=== PATIENT | female | born 1995 | race Two or more races ===

== ENCOUNTER 2024-05-26 16:47 | Emergency (ER) | payer MEDICAID, SELFPAY ==
[2024-05-26 17:13] VITALS: BP 113/71; PULSE 97; RESP 18; TEMP 37; O2SAT 98
--- NOTE | 2024-05-26 17:16 | XR_ITS ---
Examination: Complete OB ultrasound greater than 14 weeks Date and time of exam: May 26, 2024 1855 hrs. Indications: Painful urination 2 weeks, early intrauterine by history Findings: Viable intrauterine single fetus with single amniotic sac presentation variable Cardiac motion 155 BPM Placenta fundal grade 1 Umbilical cord insertion seen Amniotic fluid index 7.7 cm Cervix 4.8 cm closed Ovaries obscured by bowel gas. Composite estimated gestational age based on BPD, head circumference, abdominal circumference, femur length is 17 weeks 6 days Estimated weight 202.5 g. Survey of intracranial anatomy, spinal anatomy, abdominal anatomy, four-chamber heart performed with no abnormalities identified. Impression: Viable intrauterine gestation variable presentation Placenta fundal no abruption.
--- NOTE | 2024-05-26 17:17 | EDNOTE_ITS ---
ED Female Urogenital RME/HPI General Chief complaint: Urogenital-Female Stated complaint: 17 weeks OB , painful urination Time Seen by Provider: 05/26/24 17:09 Arrival date/time: 05/26/24 16:47 RME / HPI RME / HPI Narrative: 28-year-old female patient 1 para 0, about 17 weeks gestation, came in for evaluation regarding dysuria. Patient been having dysuria for 1 week with frequency, and vaginal discomfort. Patient denies any vomiting denies any fever denies any vaginal bleeding denies any spotting however patient is complaining of pelvic pain, severity mild. Seen by Dr. Gaytan [facility], and was started on vaginal cream with no relief. Related Data Allergies Allergy/AdvReac Type Severity Reaction Status Date / Time No Known Allergies Allergy Verified 03/28/24 13:10 Review of Systems Review of Systems Narrative Review of Systems: Review of system reviewed and within normal limits except mentioned in HPI ED Exam Narrative Physical exam: VITAL SIGNS: Reviewed. GENERAL APPEARANCE: Alert and interactive, follows commands, no acute distress, HEAD AND FACE: Non-traumatic. ENT: PERRL, pink conjunctivitis, eyelid no trauma, Mucous membrane moist. NECK: Supple, nontender, no nuchal rigidity. CHEST: No tenderness, no crepitus, no paradoxical movement, no retractions. LUNGS: Clear, well ventilated, symmetric, no rales, no wheezing, no ronchi, no stridor, good breath sounds bilaterally. HEART: Regular rate, regular rhythm, no murmur, no gallops. ABDOMEN: Soft, positive bowel sounds, nondistended, no guarding, nontender, no rebound, no masses, RECTAL: Deferred. GENITAL: Deferred. NEUROLOGICAL: Gross motor function intact sensory function intact, Appropriate for age. MUSCULOSKELETAL: low back nontender, full range of motion. EXTREMITIES: Nontender, full range of motion. SKIN: Color pink, dry, no rash, no lacerations, no abrasions, no contusions. LYMPHATICS: Deferred. Course Quality Measures none Orders Category Date Time Status US OB >= 14 weeks Fetus Stat Exams 05/26/24 17:16 Completed Beta HCG,Quantitative Stat Lab 05/26/24 17:33 Completed CBC [CBC] Stat Lab 05/26/24 17:33 Completed CMP [Comprehensive Metabolic Panel] Stat Lab 05/26/24 17:33 Completed UA, C/S IF [Urinalysis, C/S if Indicated] Stat Lab 05/26/24 17:40 Completed Vital Signs Vital signs: Vital Signs Temperature 98.6 F 05/26/24 17:13 Pulse Rate 97 05/26/24 17:13 Respiratory Rate 18 05/26/24 17:13 Blood Pressure 113/71 05/26/24 17:13 Pulse Oximetry (%) 98 05/26/24 17:13 Oxygen Delivery Method Room Air 05/26/24 17:13 Urogenital - Female MDM Narrative MDM Narrative:: Patient's workup today all came back normal urinalysis no UTI. Ultrasound of showed single live intrauterine gestation about 17 weeks gestation, no abnormality noted. Results discussed with the family. Patient data External records reviewed:: None Clinical information provided by:: patient Social determinants that could affect healthcare access:: none Patient has the following chronic illnesses:: None How is presenting disease/condition affected by chronic disease/condition?: no chronic disease Evaluation data The following diagnostics were reviewed and interpreted by me:: lab results and radiology exam(s) Lab and/or radiology exams considered but not ordered:: None Interpretation Summary: Patient's workup today all came back normal ultrasound of showed single live intrauterine gestation about 17 weeks with no abnormality noted. Medications / Prescriptions Medications or Prescriptions considered but not ordered:: None Medication administrations:: None Consultations Consultation(s) initiated? (list below): No Diagnosis Urogenital Female Differential Diagnosis: urinary tract infection Most likely diagnosis given after review of the tests above:: Dysuria, Admission Indicated Admission indicated?: not indicated Admission Request Was there a request for admission?: No Admission Attestation Admission request attestation: None Disposition Plan Disposition Plan: Discharge Discharge Attestation Discharge Attestation: The patient and all family members were given an opportunity to ask questions and understood the discharge instructions. Discharge instructions specifically effects, indications for sooner follow up or return to the emergency department, and the expected course of current diagnosis. Patient condition: Stable Discharge Plan Plan Patient Disposition: HOME (Self Care) Disposition Comment: stable Prescriptions/Referrals Referrals: Madai Gaytan MD [Primary Care Provider] - In 1 week Problem List Clinical Impression: Dysuria, and not yet delivered in second trimester Patient/Caregiver Discharge Instructions Discharge Activity: activity as tolerated Education Materials: Dysuria Additional Instructions: Thank you for the opportunity for serving you today. You are stable for discharged . You are advised to: Follow-up with DR Gaytan in 1 to 2 days Return to ED for worsening of symptoms Increase oral fluids Print Language: Bulgarian Stand Alone Forms: Cristel Award Info., Patient Portal Info Letter PA/PRINTER FLOOR COVERING ASSISTANT Supervising Physician PA/NATALIE Supervising Physician: MD Pastora
[2024-05-26 17:56] LABS: Basophils % (Auto) 0 % (0-2.5); Eosinophils # (Auto) 0.1 Thou/mm3 (0.0-0.5); Eosinophils % (Auto) 1 % (0-10); Hemoglobin 11.4 g/dL (12.0-16.0); Immature Granulocytes % (Auto) 1 % (0-0); Immature Granulocytes Auto 0.04 Thou/mm3 (0.00-0.00); Lymphocytes # (Auto) 1.7 Thou/mm3 (1.0-4.8); Lymphocytes % (Auto) 24 % (10-50); Mean Corpuscular HGB Conc 34.5 g/dl (31.0-37.0); Mean Corpuscular Hemoglobin 30.6 pg (25.0-35.0); Mean Corpuscular Volume 89 fL (80-100); Monocytes # (Auto) 0.5 Thou/mm3 (0.0-0.8); Monocytes % (Auto) 7 % (0-12); Neutrophils # (Auto) 4.8 Thou/mm3 (1.8-7.7); Neutrophils % (Auto) 67 % (37-80); Nucleated Red Blood Cell % 0 /100 WBC (0); Platelet Count 165 Thou/mm3 (140-440); RDW Standard Deviation 42.7 fL (36.4-46.3); Red Blood Count 3.73 Miln/mm3 (4.00-5.20); White Blood Count 7.1 Thou/mm3 (3.6-11.0)
[2024-05-26 18:10] LABS: Collection Type, Urine Clean Catch
[2024-05-26 18:36] LABS: Bilirubin,Urine Negative (Negative); Blood,Urine Negative (Negative); Clarity,Urine Clear (Clear/Hazy); Color,Urine Lt-Yellow (Lt Yel-Yel); Culture Indicated,Urine Not Indicated; Glucose, Urine Negative (Negative); Ketones,Urine Negative (Negative); Leukocyte Esterase,Urine Positive (Negative); Nitrite,Urine Negative (Negative); Protein,Urine Negative (Neg - Trace); RBC,Urine 2 /hpf (0-3); Specific Gravity,Urine 1.023 (1.001-1.035); Squamous Epithelial Cell,Urine 2 /hpf (0-5); Urobilinogen,Urine Negative mg/dL (0.0-1.0); WBC,Urine 2 /hpf (0-5)
[2024-05-26 18:59] LABS: Alanine Aminotransferase 19 U/L (10-49); Albumin, Serum 3.9 gm/dL (3.5-5.0); Albumin/Globulin Ratio 1.7 (1.2-2.2); Alkaline Phosphatase 71 U/L (46-116); Anion Gap 5 (7-16); Aspartate Amino Transferase 14 U/L (0-34); BUN/Creatinine Ratio 12 Ratio (12-20); Beta HCG,Quantitative 39705 mIU/mL (<5.0); Bilirubin,Total 0.3 mg/dL (0.3-1.2); Blood Urea Nitrogen 6 mg/dL (9-23); Calcium 8.9 mg/dL (8.3-10.6); Carbon Dioxide 24.7 mMol/L (20.0-31.0); Chloride 108 mMol/L (98-107); Creatinine (Component) 0.5 mg/dL (0.6-1.3); Globulin 2.3 gm/dL (2.3-3.5); Glucose 121 mg/dL (74-106); Osmolality,Calculated 274 (275-295); Potassium 3.8 mMol/L (3.4-5.1); Sodium 138 mMol/L (136-145); Total Protein 6.2 gm/dL (5.7-8.2); eGFR > 60 See Note
[2024-05-26 20:36] VITALS: BP 120/65; PULSE 88; RESP 18; TEMP 36.6; O2SAT 99
[2024-05-26 20:52] VITALS: RESP 18
== END 2024-05-26 20:53 | disposition home or self-care (01) ==
PROVIDERS: Nurse Practitioner Family; Emergency Provider Emergency Medicine; PCP Student in an Organized Health Care Education/Training Program
DX: O26.892 Other specified pregnancy related conditions, second trimester (principal); R30.0 Dysuria; R10.2 Pelvic and perineal pain; R35.0 Frequency of micturition; Z3A.17 17 weeks gestation of pregnancy
CPT/HCPCS: 36415; 76805; 80053; 81001; 84702; 85025; 99284

== ENCOUNTER 2024-10-20 07:55 | Outpatient (RCR) | payer MEDICAID, SELFPAY ==
[2024-10-11 09:31] VITALS: BP 112/57; PULSE 90; RESP 16; TEMP 36.7
[2024-10-17 08:13] VITALS: BP 115/63; PULSE 90; RESP 16; TEMP 36.8
[2024-10-20 08:07] VITALS: BP 118/64; PULSE 93; RESP 16; TEMP 36.8
== END 2024-10-20 23:59 | disposition home or self-care (01) ==
LOC: S4S1 07:55
PROVIDERS: Referring Provider Student in an Organized Health Care Education/Training Program; Visit Provider Student in an Organized Health Care Education/Training Program
DX: Z34.03 Encounter for supervision of normal first pregnancy, third trimester (principal); Z31.83 Encounter for assisted reproductive fertility procedure cycle; Z3A.38 38 weeks gestation of pregnancy
CPT/HCPCS: 59025

== ENCOUNTER 2024-10-22 12:44 | Observation (INO) | payer MEDICAID, SELFPAY ==
[2024-10-22] VITALS (32 sets, daily range): BP systolic 113–125; BP diastolic 72–84; PULSE 80–104; RESP 18–99; TEMP 36.9; O2SAT 92–100; BMI 30.2
--- NOTE | 2024-10-22 13:54 | PD.LDTRIAGE2 ---
Documentation for date of: 10/22/24 Hx History Provider: Madai Gaytan : 1 Para: 0 Term: 0 : 0 Number of Living Children: 0 Abortions: Spontaneous & Elective: 0 # of Vaginal Deliveries:: 0 Hx Section: No Hx Vaginal Delivery Post : No Gestation Info Final ALIA: 11/07/24 Complaint Complaint Complaint: Co of pelvic pain, back pain, diarrhea and vomiting since 0700. IVF FROM [facility]. DIARRHEA WITHOUT FEVER OR COLIC. MILD NAUSEA RESOLVED. POC GLUCOSE ~ 68. EXAM: CERVIX 1 CM, ABDOMEN SOFT, NO GUARDING, NO INGUINAL ADENOPATHY. MILD TENDERNESS SACRO-ILIAC JOINT. FHR= CATEGORY ONE PATTERN. IRREGULAR CONTRACTIONS 3 TO 7 MINUTES INTERVAL. 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 Assessment Systems With in Normal Limits: Yes Contractions Evaluation Contractions Monitor Mode: External Contraction Frequency: 1.5-7 Contraction Duration: 60-90 Resting Tone Palpate: Soft Contraction Intensity: Mild Sterile Vaginal Exam Cervical Dilatation: 1 Cervical Effacement: 80 Station: -1 Heart Monitoring Heart Rate Assessment Monitor Mode: External FHR Baseline: 140 Variability: Moderate Accelerations: 15x15 FHR Pattern Category: Category l FHT Interventions: Turn to Right Side Movement Reported: Yes NST Reactive: Yes WNL for GA: Yes Amniotic Membranes Amniotic Membranes Amniotic Membrane Status: Intact Social risk screen Social Risk Screening Observed or verbalized signs of abuse or neglect: No Tool Carrier Referral: No RN Notes Notes LD Triage Comment: RECHECK CERVIX AFTER I HOUR
[2024-10-22 14:32] LABS: Collection Type, Urine Clean Catch
[2024-10-22 14:49] LABS: Bacteria,Urine 1+; Bilirubin,Urine Negative (Negative); Blood,Urine Negative (Negative); Budding Yeast,Urine Present; Clarity,Urine Turbid (Clear/Hazy); Color,Urine Yellow (Lt Yel-Yel); Glucose, Urine Negative (Negative); Ketones,Urine 2+ (Negative); Leukocyte Esterase,Urine Positive (Negative); Nitrite,Urine Negative (Negative); Protein,Urine Trace (Neg - Trace); RBC,Urine 11 /hpf (0-3); Specific Gravity,Urine 1.015 (1.001-1.035); Squamous Epithelial Cell,Urine 15 /hpf (0-5); WBC,Urine 12 /hpf (0-5)
== END 2024-10-22 16:04 | disposition home or self-care (01) ==
PROVIDERS: Admitting Provider Obstetrics & Gynecology; PCP Family Medicine; Visit Provider Obstetrics & Gynecology
DX: O99.613 Diseases of the digestive system complicating pregnancy, third trimester (principal); K52.9 Noninfective gastroenteritis and colitis, unspecified; O24.410 Gestational diabetes mellitus in pregnancy, diet controlled; Z3A.37 37 weeks gestation of pregnancy
CPT/HCPCS: 59899; 81001

== ENCOUNTER 2024-10-25 17:18 | Inpatient (IN) | payer MEDICAID, SELFPAY ==
[2024-10-25] VITALS (34 sets, daily range): BP systolic 121–136; BP diastolic 68–84; PULSE 71–117; O2SAT 92–100; BMI 29.7
--- NOTE | 2024-10-25 17:26 | XR_ITS ---
Examination: age limited TECHNIQUE: Limited transabdominal sonographic images pelvis Date and time: October 25, 2024 1740 hours INDICATIONS: Premature labor induction, unknown presentation and weight FINDINGS: Viable intrauterine gestation cephalic presentation Cardiac motion 143 bpm Estimated weight 3939 g Estimated gestational age 39 weeks 5 days IMPRESSION: Viable intrauterine gestation cephalic presentation Estimated gestational age 39 weeks 5 days Estimated weight 3939 g
[2024-10-25 18:13] LABS: Basophils % (Auto) 0 % (0-2.5); Eosinophils % (Auto) 1 % (0-10); Hematocrit 32.9 % (36.0-46.0); Hemoglobin 10.7 g/dL (12.0-16.0); Immature Granulocytes % (Auto) 1 % (0-0); Immature Granulocytes Auto 0.03 Thou/mm3 (0.00-0.00); Lymphocytes # (Auto) 1.3 Thou/mm3 (1.0-4.8); Lymphocytes % (Auto) 23 % (10-50); Mean Corpuscular HGB Conc 32.5 g/dl (31.0-37.0); Mean Corpuscular Hemoglobin 26.3 pg (25.0-35.0); Mean Corpuscular Volume 81 fL (80-100); Monocytes # (Auto) 0.5 Thou/mm3 (0.0-0.8); Monocytes % (Auto) 9 % (0-12); Neutrophils # (Auto) 3.9 Thou/mm3 (1.8-7.7); Neutrophils % (Auto) 67 % (37-80); Nucleated Red Blood Cell % 0 /100 WBC (0); Platelet Count 129 Thou/mm3 (140-440); RDW Standard Deviation 42.5 fL (36.4-46.3); Red Blood Count 4.07 Miln/mm3 (4.00-5.20); White Blood Count 5.9 Thou/mm3 (3.6-11.0)
[2024-10-25 19:14] LABS: Syphilis Nonreactive (Nonreactive)
[2024-10-25] MEDS: MISOPROSTOL 50 mCg TABLET VAGINAL (19:27)
--- NOTE | 2024-10-25 23:19 | PD.LDHP ---
Documentation for date of: 10/25/24 OB Labor/Induct. HPI History of Present Illness Chief complaint: Induction of labor for IVF and diet-controlled gestational diabetes : 1 Term pregnancies: 0 pregnancies: 0 Living children: 0 History of Abortions: Spontaneous and Elective: 0 History of sections: No History of : No Date of last menstrual period: 02/01/24 ALIA: 11/01/24 Gestational Age (weeks): 39 Gestational Age (days): 0 Gestational age based on last menstrual period: 38 Indication for induction: medical complication (IVF, lxs-mfvhqky-vsfzlnqcz gestational diabetes) History of present illness: Patient is a 29-year-old G1, P0 with an IVF . Being induced for IVF and wes-lshpezi-iqgzybuzq gestational diabetes. All care with Dr. Gaytan at [facility]. History of Present Dating criteria: LMP confirmed by 1st trimester US Adequate Care: Yes Ultrasounds: normal mid trimester US Obstetrical complications: gestational diabetes Medical complications: none Labs Labs: Positive: Rubella Titre, Negative: RPR, Hepatitis B, HIV, Chlamydia, Gonorrhea and Group Beta Strep and Unknown: Herpes Type 1, Herpes Type 2 and Covid-19 Past Medical History Surgical History SURGICAL: Negative Section Meds Home Medications and Allergies Home Medications ?Medication ?Instructions ?Recorded ?Confirmed ?Type No Known Home Medications 10/22/24 10/25/24 History Allergies Allergy/AdvReac Type Severity Reaction Status Date / Time No Known Allergies Allergy Verified 10/25/24 17:56 OB Exam Physical Exam Vital signs: Pulse BP Pulse Ox 75 121/73 99 10/25/24 21:09 10/25/24 21:09 10/25/24 20:05 Narrative: Patient is alert and oriented x 3 only speaks Lao. Her is present to translate. She declines official translating services Routine Abdominal Exam Abdominal: Present soft Comments: EFW by Hung'julio césar about 8 pounds. Detailed Labor and Delivery Exam Dilation (cm): 2 Effacement (%): 70 Cervix position: anterior station: -2 Consistency: soft Presentation: Vertex Membranes: intact monitor accelerations: 15x15 care home variability: Moderate (11-25) Contraction frequency (min): Irregular OB Results Labs 10/25/24 17:30 Labs: Short CBC 10/25/24 Range/Units 17:30 WBC 5.9 (3.6-11.0) Thou/mm3 Hgb 10.7 L (12.0-16.0) g/dL Hct 32.9 L (36.0-46.0) % Plt Count 129 L (140-440) Thou/mm3 Ultrasound reveals live IUP vertex presentation around 4000 g which is about 8 pounds 6 ounces. OB Assessment & Plan Assessment and Plan (1) Supervision of high risk in third trimester: Status: Acute (2) Conceived by in vitro fertilization: Status: Acute Assessment and plan: Induction of labor with Cytotec. 50 mcg placed vaginally. Reexamine the patient in 4 hours and proceed with oral Cytotec. (3) Gestational diabetes, diet controlled: Status: Acute Additional Plan Induction method: per misoprostol protocol Plan: induction and anticipate NVD Additional Plan Comment: Patient desires epidural. (3) Gestational diabetes, diet controlled Qualifiers: Trimester: third trimester Qualified Code(s): O24.410 - Gestational diabetes mellitus in , diet controlled
--- NOTE | 2024-10-25 23:31 | PD.LDHP ---
Documentation for date of: 10/25/24 OB Labor/Induct. HPI History of Present Illness : 1 Term pregnancies: 0 pregnancies: 0 Living children: 0 History of Abortions: Spontaneous and Elective: 0 History of sections: No History of : No Date of last menstrual period: 02/01/24 ALIA: 11/01/24 Gestational Age (weeks): 39 Gestational Age (days): 0 Gestational age based on last menstrual period: 38 History of present illness: Patient is a 29-year-old G1, P0 with an IVF . Being induced for IVF and ojs-srswanz-xkwukpdcp gestational diabetes. All care with Dr. Gaytan at [facility]. History of Present Dating criteria: LMP confirmed by 1st trimester US Adequate Care: Yes Labs Labs: Positive: Rubella Titre, Negative: RPR, Hepatitis B, HIV, Chlamydia, Gonorrhea and Group Beta Strep and Unknown: Herpes Type 1, Herpes Type 2 and Covid-19 Past Medical History Surgical History SURGICAL: Negative Section Meds Home Medications and Allergies Home Medications ?Medication ?Instructions ?Recorded ?Confirmed ?Type No Known Home Medications 10/22/24 10/25/24 History Allergies Allergy/AdvReac Type Severity Reaction Status Date / Time No Known Allergies Allergy Verified 10/25/24 17:56 OB Exam Physical Exam Vital signs: Pulse BP Pulse Ox 71 122/68 99 10/25/24 23:23 10/25/24 23:23 10/25/24 20:05 OB Results Labs 10/25/24 17:30 Labs: Short CBC 10/25/24 Range/Units 17:30 WBC 5.9 (3.6-11.0) Thou/mm3 Hgb 10.7 L (12.0-16.0) g/dL Hct 32.9 L (36.0-46.0) % Plt Count 129 L (140-440) Thou/mm3 OB Assessment & Plan Assessment and Plan (1) Supervision of high risk in third trimester: Status: Acute (2) Conceived by in vitro fertilization: Status: Acute (3) Gestational diabetes, diet controlled: Status: Acute (3) Gestational diabetes, diet controlled Qualifiers: Trimester: third trimester Qualified Code(s): O24.410 - Gestational diabetes mellitus in , diet controlled
[2024-10-26] VITALS (182 sets, daily range): BP systolic 105–125; BP diastolic 51–83; PULSE 61–115; RESP 16–18; TEMP 36.8–37.1; O2SAT 74–100
[2024-10-26] MEDS: RINGERS LACTATED 1000 ML 1,000 ML 100 ML IV ×2 (05:50→23:48)
[2024-10-26] MEDS: MISOPROSTOL 50 mCg TABLET PO ×2 (07:00→13:51)
[2024-10-26] MEDS: fentaNYL CIT INJ 50 mCg/ML AMP 2ML 100 MCG IV ×4 (08:22→23:22)
--- NOTE | 2024-10-26 17:44 | PD.LDPN ---
Documentation for date of: 10/26/24 OB Labor Progress Note Pain Control Pain control: tolerating well Comments: Not uncomfortable currently. Has used IV fentanyl x 1. Pelvic Exam Dilation (cm): 3 Effacement (%): 70 station: -2 Amniotic membrane status: Intact Comments: Examined patient at 1300. Offered to AROM. The states the patient does not want her bag broken. Patient has had a total of 2 doses of Cytotec. She got admitted around 7 PM last night. It was held overnight because apparently she was oumar too much. Patient is not making adequate cervical change. She was 2 to 3 cm when I admitted her. I have her 3 cm now. Contractions Monitor mode: External Contraction frequency: 4 Contraction intensity: Mild Status status: Category l Assessment and Plan Assessment: induction ongoing Plan OB labor note: continuous present management Comments: Patient declining AROM and IUPC. Having small contractions. Has only had 2 doses of Cytotec.
[2024-10-26] MEDS: OXYTOCIN in NS 30 units 30 UNIT/500 ML BAG IV (18:13)
--- NOTE | 2024-10-26 20:04 | PD.LDPN ---
Documentation for date of: 10/26/24 OB Labor Progress Note Pain Control Pain control: tolerating well Comments: The patient was last rounded on around lunchtime. She was still 3 cm. They reexamined her after her third dose of Cytotec and she still 3 cm. Pitocin augmentation was ordered. Pelvic Exam Dilation (cm): 3 Effacement (%): 60 station: -3 Amniotic membrane status: Intact Contractions Monitor mode: External Contraction frequency: 1-3 Contraction intensity: Mild Status status: Category l Assessment and Plan Assessment: induction ongoing Plan OB labor note: begin Pitocin augmentation
[2024-10-26] MEDS: RINGERS LACTATED 500 ML 500 ML 999 ML IV (23:49)
[2024-10-27] VITALS (225 sets, daily range): BP systolic 98–136; BP diastolic 53–82; PULSE 49–138; RESP 15–21; TEMP 36.9–37.5; O2SAT 89–100
[2024-10-27] MEDS: FAMOTIDINE INJ 10 MG/ML VIAL 2 ML 20 MG IVP (03:29)
--- NOTE | 2024-10-27 06:36 | PD.LDPN ---
Documentation for date of: 10/27/24 OB Labor Progress Note Pain Control Pain control: tolerating well and epidural Comments: Patient had requested epidural overnight before I broke her bag. She is asleep resting comfortably Pelvic Exam Dilation (cm): 3.5 Effacement (%): 80 station: -2 Amniotic membrane status: Ruptured Comments: AROMed and copious clear amniotic fluid. IUPC placed at 6:20 AM Contractions Monitor mode: Internal Contraction frequency: 3-6 Contraction pattern: Coupling Contraction intensity: Mild Status status: Category l Assessment and Plan Plan OB labor note: continuous present management Comments: Continue Pitocin augmentation. If patient is in adequate labor and does not make change for 4 to 5 hours consider section.
[2024-10-27] MEDS: RINGERS LACTATED 1000 ML 1,000 ML 100 ML IV (12:51)
[2024-10-27] MEDS: ceFAZolin/D5W 2 GM IV 2 GM/100 ML BAG IV (13:06)
[2024-10-27] MEDS: CITRIC ACID/SODIUM CITR 15 ML UDC (BICITRA) 30 ML PO (13:06)
[2024-10-27] MEDS: FAMOTIDINE INJ 10 MG/ML VIAL 2 ML 20 MG IV (13:07)
[2024-10-27] MEDS: KETOROLAC INJ 30 MG/ML VIAL IVP (17:23)
[2024-10-27] MEDS: IBUPROFEN TAB 400 MG TABLET 800 MG PO (19:48)
[2024-10-27] MEDS: OXYTOCIN in NS 20 units 20 UNIT/1,000 ML BAG 125 UNIT IV (19:49)
[2024-10-28] VITALS: BP 118/72; PULSE 52; RESP 18; TEMP 36.9; O2SAT 99
[2024-10-28] MEDS: KETOROLAC INJ 30 MG/ML VIAL IVP (00:33)
[2024-10-28] MEDS: ACETAMINOPHEN 325 MG TABLET 650 MG PO (01:31)
[2024-10-28] MEDS: HYDROcodone/APAP 5/325 TABLET 2 TAB PO ×3 (02:28→16:38)
[2024-10-28 05:12] LABS: Basophils % (Auto) 0 % (0-2.5); Eosinophils % (Auto) 0 % (0-10); Hematocrit 29.7 % (36.0-46.0); Hemoglobin 9.9 g/dL (12.0-16.0); Immature Granulocytes % (Auto) 1 % (0-0); Immature Granulocytes Auto 0.07 Thou/mm3 (0.00-0.00); Lymphocytes # (Auto) 1.2 Thou/mm3 (1.0-4.8); Lymphocytes % (Auto) 9 % (10-50); Mean Corpuscular HGB Conc 33.3 g/dl (31.0-37.0); Mean Corpuscular Hemoglobin 26.8 pg (25.0-35.0); Mean Corpuscular Volume 81 fL (80-100); Monocytes # (Auto) 0.9 Thou/mm3 (0.0-0.8); Monocytes % (Auto) 7 % (0-12); Neutrophils # (Auto) 11.1 Thou/mm3 (1.8-7.7); Neutrophils % (Auto) 83 % (37-80); Nucleated Red Blood Cell % 0 /100 WBC (0); Platelet Count 113 Thou/mm3 (140-440); RDW Standard Deviation 42.5 fL (36.4-46.3); Red Blood Count 3.69 Miln/mm3 (4.00-5.20); White Blood Count 13.4 Thou/mm3 (3.6-11.0)
[2024-10-28 05:15] VITALS: BP 104/68; PULSE 60; RESP 18; TEMP 36.5
[2024-10-28] MEDS: IBUPROFEN TAB 400 MG TABLET 800 MG PO ×3 (05:55→23:32)
--- NOTE | 2024-10-28 07:59 | ESPR_ITS ---
Subjective Subjective Interval history: POD # 1. Pt denies any problem or complaints. Exam Vital Signs Temp Pulse Resp BP Pulse Ox O2 Del Method 97.7 F 60 18 104/68 99 Room Air 10/28/24 05:15 10/28/24 05:15 10/28/24 05:15 10/28/24 05:15 10/28/24 00:00 10/28/24 05:15 Routine Respiratory Exam Comments: CTA B/L Routine Cardiovascular Exam Comments: RRR Routine Abdominal Exam Comments: Dressing dry and intact. Non distended. Fundus firm. Routine Extremities Exam Comments: Nontender Objective Labs 10/28/24 04:36 Labs: Laboratory Results - last 24 hr 10/28/24 04:36 WBC 13.4 H D RBC 3.69 L Hgb 9.9 L Hct 29.7 L MCV 81 MCH 26.8 MCHC 33.3 RDW Std Deviation 42.5 Plt Count 113 L Neut % (Auto) 83 H Lymph % (Auto) 9 L [place] % (Auto) 7 Eos % (Auto) 0 Baso % (Auto) 0 Neut # (Auto) 11.1 H Lymph # (Auto) 1.2 [place] # (Auto) 0.9 H Eos # (Auto) 0.0 Baso # (Auto) 0.0 Immature Gran # (Auto) 0.07 H Absolute Nucleated RBC 0.00 Immature Gran % 1 H Nucleated RBC % 0 Assessment & Plan Problem List (1) Supervision of high risk in third trimester: Status: Acute (2) Conceived by in vitro fertilization: Status: Acute (3) Gestational diabetes, diet controlled: Status: Acute Assessment Comment Assessment comment: POD #1 S/P C/S Regular diet. Remove Dressing. D/C IV. Support. Encourage Amubulation. Discharge home tomorrow. Time Spent With Patient Time: Total time spent is greater than 50% in coordination of care (as documented) at patient's floor/unit and/or counseling patient:
--- NOTE | 2024-10-28 08:24 | PC.NURSE ---
0800 District Scout Executive Monisha , not in room at the time of vitals. Used crop or grain farmer to ask patient if it was ok to check vitals and fundal massage. Patient declined and stated she just wants to sleep. 15 Patients in room, educated him on the importance of vitals and checking fundals, if at any time bleeding increases to call for assistance. Also educated him on the importance of ambulating post op to prevent ileus, blood clots and pnemonia, to also have pt up to the restroom frequently. verbalized understanding
[2024-10-28] MEDS: SIMETHICONE 80 MG CHEW PO ×2 (08:39→23:32)
[2024-10-28] MEDS: DOCUSATE SOD 100 MG CAPSULE PO (08:39)
[2024-10-28 11:34] VITALS: BP 102/64; PULSE 72; RESP 16; TEMP 36.4; O2SAT 97
[2024-10-28 16:05] VITALS: BP 115/74; PULSE 64; RESP 16; TEMP 36.7; O2SAT 98
[2024-10-28 21:00] VITALS: BP 111/74; PULSE 77; RESP 18; TEMP 36.4; O2SAT 99
[2024-10-28] MEDS: HYDROcodone/APAP 5/325 TABLET 1 TAB PO (21:24)
[2024-10-29] VITALS: BP 110/70; PULSE 76; RESP 18; TEMP 36; O2SAT 98
[2024-10-29 04:31] VITALS: BP 102/66; PULSE 63; RESP 18; TEMP 37.1; O2SAT 97
[2024-10-29] MEDS: HYDROcodone/APAP 5/325 TABLET 1 TAB PO ×2 (04:31→14:53)
[2024-10-29 08:00] VITALS: BP 99/61; PULSE 77; RESP 15; TEMP 36.6; O2SAT 96
--- NOTE | 2024-10-29 08:55 | PD.LDPPPRG ---
Subjective Subjective Interval history: Delivery type: Patient doing well this morning. No acute complaints. Ambulating, tolerating p.o. and voiding without difficulty. HTN/Pre-Eclampsia screen: No chest pain, shortness of breath, headache, visual changes, epigastric or right upper quadrant pain. Breast-feeding, lochia diminishing. Bowel: Flatus+/ BM+ Exam Vital Signs Temp Pulse Resp BP Pulse Ox O2 Del Method 98.7 F 63 18 102/66 97 Room Air 10/29/24 04:10/29/24 04:10/29/24 04:10/29/24 04:10/29/24 04:10/29/24 04:31 Constitutional Constitutional: no acute distress Routine HEENT Exam Head: Present normocephalic and atraumatic Eye: Present EOMI and PERRL ENT: Present mucous membranes moist Routine Neck Exam Neck: Present supple and trachea midline Routine Respiratory Exam Respiratory: Present chest non-tender, lungs clear, normal breath sounds and no resp distress Routine Cardiovascular Exam Cardiovascular: Present RRR Routine Abdominal Exam Abdominal: Present soft and normoactive bowel sounds Routine Extremities Exam Extremities: Present full ROM Routine Skin Exam Skin: Present intact, dry and warm Routine Neurological Exam Neurological: Present alert, oriented X3 and CN II-XII intact Routine Psychiatric Exam Psychiatric: Present normal affect and normal thought process Objective Labs 10/28/24 04:36 Assessment & Plan Problem List (1) Supervision of high risk in third trimester: Status: Acute Assessment and plan: PPD/POD#2 1. Continue routine care 2. Transition to PO meds. 3. Encourage to ambulate/ breast-feed 4. Anticipate discharge home today. (2) Conceived by in vitro fertilization: Status: Acute (3) Gestational diabetes, diet controlled: Status: Acute Time Spent With Patient Time: Total time spent is greater than 50% in coordination of care (as documented) at patient's floor/unit and/or counseling patient:
--- NOTE | 2024-10-29 08:57 | ESDS_ITS ---
DS: Providers Provider Date of admission: 10/25/24 17:18 Primary care physician: Physician No Primary/Family Admitting Provider: Dorothy Najera MD ([facility]) Attending Provider on Admission: Juaquin Brito MD Consults: 10/27/24 15:42 Referral Routine Comment: Attending Provider on DC: Pratik Stahl MD Discharging Provider: Pratik Stahl MD DS: Diagnosis Discharge Diagnosis (1) Gestational diabetes, diet controlled: Status: Acute (2) Conceived by in vitro fertilization: Status: Acute (3) Supervision of high risk in third trimester: Status: Acute Problem List Completed Was Problem List Reviewed/Reconciled?: Yes Summary/Hosp Course Brief History: Patient is a 29-year-old G1, P0 with an IVF . Being induced for IVF and zro-cqbhugv-pzcwnfhtz gestational diabetes. All care with Dr. Gaytan at [facility]. Peripartum Data Delivery Method: Low Transverse Episiotomy Description: None Procedures: Procedures Operation Date: 10/27/24 13:17 Actual Procedure Side Surgeon p in OR Pratik Stahl MD Time Spent with Patient Time attestation: Total time spent providing and/or coordinating discharge services: Exam Vital Signs Temp Pulse Resp BP Pulse Ox O2 Del Method 98.7 F 63 18 102/66 97 Room Air 10/29/24 04:31 10/29/24 04:31 10/29/24 04:31 10/29/24 04:31 10/29/24 04:31 10/29/24 04:31 Discharge Plan Plan Patient Disposition: HOME (Self Care) Patient condition on transfer: Stable Prescriptions/Referrals Prescriptions/Med Rec: New docusate sodium 100 mg Capsule 100 mg PO QDAY 30 Days Qty: 30 0RF hydrocodone-acetaminophen 5-325 mg tablet 1 tab PO Q6H MDD 4 PRN (Reason: pain) 7 Days Qty: 28 0RF ibuprofen 600 mg tablet 600 mg PO Q6H MDD 4 PRN (Reason: fever or pain) 10 Days Qty: 40 0RF Continued No Known Home Medications Referrals: Pratik Stahl MD [Physician] - No Primary/Family,Physician [Primary Care Provider] - Patient/Caregiver Discharge Instructions Discharge Activity: activity as tolerated Other Discharge Activity Instructions:: Follow up in office in 1 week. Education Materials: What Is Gestational Diabetes?, Anemia During , C Section Dc Print Language: Divehi Stand Alone Forms: Cristel Award Info., Patient Portal Info Letter Planned Discharge Date 10/29/24 (1) Gestational diabetes, diet controlled Qualifiers: Trimester: third trimester Qualified Code(s): O24.410 - Gestational diabetes mellitus in , diet controlled
[2024-10-29] MEDS: DOCUSATE SOD 100 MG CAPSULE PO (09:11)
[2024-10-29] MEDS: IBUPROFEN TAB 400 MG TABLET 800 MG PO (09:11)
--- NOTE | 2024-11-04 04:17 | ESOP_ITS ---
Operative Note - [facility] Procedure Date of procedure: 11/25/24 Procedure Performed: Primary low-transverse section Indication: 29-year-old G1, P0 who is now status post 3 days of induction of labor for IVF Failed induction of labor Possible chorioamnionitis Maternal exhaustion and request Anesthesia type: Spinal Procedure description: Informed consent was obtained and the patient was taken to the operating room. Identity was confirmed by double identifiers and she was placed on the operating table. Spinal anesthesia was administered and she was positioned in the supine position. The abdomen and perineum were prepped in the usual sterile fashion and a Francisco catheter was placed to continuous drainage. Sterile drapes were applied. The incision site was tested for adequacy of anesthesia. A Pfannenstiel skin incision was made with a scalpel and carried to the subcutaneous fat up to the rectus fascia. The rectus fascia was incised on eit her side of the midline and the incisions were extended bilaterally. The fascia was gently dissected off the ventral surface of the rectus muscle both superiorly and inferiorly. The rectus bellies were gently in the midline and the peritoneum was identified and entered bluntly using the surgeon's finger. The peritoneal opening was now stretched to create an adequate opening for access to the uterus. Samy O-ring retractor was placed for adequate visualization. The anterior surface of the uterus was palpated. The bladder reflection was identified and a Marcie Grissom low transverse uterine incision was made in the lower uterine segment taking care to avoid the bladder. Uterine entry was accomplished bluntly and the opening was stretched to create adequate room. The amniotic membranes were now ruptured and clear amniotic fluid was released. The fetus was noted to be in the vertex position. The head was gently elevated out of the maternal pelvis and single loop of n uchal cord was found around the neck. The cord was released and the rest of the shoulders and body were delivered by gentle fundal pressure. Umbilical cord was doubly clamped, divided and the was handed over to the waiting team. Cord gas samples were obtained. The placenta was delivered by gentle traction on the umbilical cord. The interior of the uterus was now thoroughly cleaned of all blood and debris and membranes. The hysterotomy angles were grasped by a pair of Allis clamps and the hysterotomy was closed using 1 Monocryl suture in 2 layers. The first layer was used to approximate the muscle in a running locked fashion, the second layer was used to approximate the thickness of the myometrium and uterine serosa in an imbricated manner. Once the repair was completed the hysterotomy was inspected and noted to be adequately hemostatic. The hysterotomy was once again inspected and hemostasis was noted to be satisfactory. The Samy retractor was now removed. The peritoneal edges were re approximated. The rectus muscles were re approximated. The rectus fascia was now repaired using 0 Vicryl suture in a running fashion. The subcutaneous layer was now copiously irrigated using warm normal saline. All bleeding points were cauterized using the Bovie. The subcutaneous fat was closed using 3-0 Vicryl. The skin was closed using 4-0 Monocryl in a subcuticular fashion. The skin was cleaned and a sterile dressing was applied. The patient was now undraped, the abdomen and back were thoroughly cleaned and she was transferred to the recovery room in a stable and awake condition. The patient tolerated the entire procedure well. No complications were encountered. All instrument, sponge and lap counts were correct x2. Estimated blood loss (ml): 600 Complications: none Diagnosis Discharge Diagnosis (1) Supervision of high risk in third trimester: Status: Acute (2) Conceived by in vitro fertilization: Status: Acute (3) Gestational diabetes, diet controlled: Status: Acute (4) delivery delivered: Status: Acute Problem List Completed Was Problem List Reviewed/Reconciled?: Yes (3) Gestational diabetes, diet controlled Qualifiers: Trimester: third trimester Qualified Code(s): O24.410 - Gestational diabetes mellitus in , diet controlled
== END 2024-10-29 15:10 | disposition home or self-care (01) | DRG 540 ==
LOC: S4SX 10-27 12:37 → S4NX 10-28 06:54
PROVIDERS: Obstetrics & Gynecology; Admitting Provider Obstetrics & Gynecology; Visit Provider Specialist
PROC: (CPT 59514; principal; 2024-10-27 13:00)
DX: O24.420 Gestational diabetes mellitus in childbirth, diet controlled (principal); Z3A.39 39 weeks gestation of pregnancy; Z37.0 Single live birth; O69.81X0 Labor and delivery complicated by cord around neck, without compression, not applicable or unspecified; O75.81 Maternal exhaustion complicating labor and delivery
CPT/HCPCS: 36415; 76815; 85025; 86780; 86850; 86900; 86901; A4649; J0689; J1100; J1885; J2210; J2371; J2405; J2590; J2795; J3010; J3490; J7120; A9270

== ENCOUNTER 2024-11-03 08:37 | Inpatient (IN) | payer MEDICAID, SELFPAY ==
[2024-11-03] VITALS (7 sets, daily range): BP systolic 117–159; BP diastolic 51–93; PULSE 52–75; RESP 16–22; TEMP 36.8–37.2; O2SAT 94–99; BMI 29.7
--- NOTE | 2024-11-03 08:57 | XR_ITS ---
Examination: CTA chest with intravenous contrast 2-D reconstructions 3-D reconstructions, vascular Date and time of exam: November 03, 2024 1404 hours INDICATIONS: Status post 1 week ago, coughing up blood. Shortness of breath today CTDI: vol (mGy) 7.65 DLP: (mGycm) 240 Technique: Multiple axial sections of the thorax have been obtained. 3 mm slice thickness, from below the hemidiaphragms to above the apices of the lungs. Mediastinal and lung density settings have been obtained. 2-D sagittal and coronal reconstructions. 3-D angiographic renderings, 3-D volume renderings, 3D post processing, vascular maximum intensity projections obtained. Contrast administered is 75 cc Isovue-370. Low dose protocols were performed. One or more of the following dose reduction techniques were used; automated exposure control, adjustment of the mA and/or KV according to patient size, use of iterative reconstruction technique. Findings: No thoracic aortic aneurysmal dilatation No pulmonary artery filling defects Mild enlargement cardiac contour with mild edema at the lung bases and small pleural effusions No visualized liver or splenic lesion No pancreatic mass IMPRESSION: Negative for pulmonary artery emboli Suspicious for mild heart failure
--- NOTE | 2024-11-03 08:57 | XR_ITS ---
Examination: Venous duplex lower extremity sonogram, bilateral. Date and time of exam: November 03, 2024 1005 hours INDICATIONS: Bilateral leg swelling beginning one week ago, October 27, 2024 Technique: Multiple sonographic images of the deep venous system have been obtained. B-mode/2-D grayscale imaging of vascular structures and Doppler spectral analysis (waveforms) and color performed Both legs are examined. Findings: Deep venous systems do not demonstrate abnormal echogenicity. All visualized deep veins exhibit compressibility. All visualized deep veins exhibit augmentation. Impression: Negative for deep vein thrombosis
--- NOTE | 2024-11-03 08:57 | EKG_ITS ---
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
--- NOTE | 2024-11-03 08:58 | PD.EDRME ---
Rapid Medical Screening Exam RME Arrival date/time: 11/03/24 08:37 29-year-old female with no known medical history presents to the emergency room with a chief complaint of bilateral lower extremity swelling, shortness of breath with and without exertion, coughing up blood, vaginal discharge x 4 days. Patient had a on 10/27/2024. Your symptoms have progressively gotten worse since then. I have greeted and performed a focused initial assessment of this patient. A comprehensive ED assessment and evaluation of the patient, analysis of all test results, and completion of the medical decision making process will be conducted by additional ED providers. Chief Complaint: General Adult/Misc Complain Time Seen by Provider: 11/03/24 08:51 Vital signs reviewed by provider: Yes
[2024-11-03 09:15] LABS: Collection Type, Urine Clean Catch
[2024-11-03 10:02] LABS: Basophils % (Auto) 0 % (0-2.5); Eosinophils # (Auto) 0.1 Thou/mm3 (0.0-0.5); Eosinophils % (Auto) 2 % (0-10); Hematocrit 25.2 % (36.0-46.0); Immature Granulocytes % (Auto) 1 % (0-0); Immature Granulocytes Auto 0.05 Thou/mm3 (0.00-0.00); Lymphocytes # (Auto) 1.4 Thou/mm3 (1.0-4.8); Lymphocytes % (Auto) 21 % (10-50); Mean Corpuscular HGB Conc 32.9 g/dl (31.0-37.0); Mean Corpuscular Hemoglobin 26.5 pg (25.0-35.0); Mean Corpuscular Volume 81 fL (80-100); Monocytes # (Auto) 0.5 Thou/mm3 (0.0-0.8); Monocytes % (Auto) 8 % (0-12); Neutrophils # (Auto) 4.5 Thou/mm3 (1.8-7.7); Neutrophils % (Auto) 69 % (37-80); Nucleated Red Blood Cell % 0 /100 WBC (0); Platelet Count 209 Thou/mm3 (140-440); RDW Standard Deviation 43.8 fL (36.4-46.3); Red Blood Count 3.13 Miln/mm3 (4.00-5.20); White Blood Count 6.5 Thou/mm3 (3.6-11.0)
[2024-11-03 10:05] LABS: Hemoglobin 8.3 g/dL (12.0-16.0)
[2024-11-03 10:09] LABS: Bacteria,Urine Rare; Bilirubin,Urine Negative (Negative); Blood,Urine 2+ (Negative); Clarity,Urine Clear (Clear/Hazy); Color,Urine Colorless (Lt Yel-Yel); Glucose, Urine Negative (Negative); Ketones,Urine Negative (Negative); Leukocyte Esterase,Urine Positive (Negative); Nitrite,Urine Negative (Negative); PH,Urine 7.5 (5.0-7.0); Protein,Urine Negative (Neg - Trace); RBC,Urine 6 /hpf (0-3); Specific Gravity,Urine 1.008 (1.001-1.035); Squamous Epithelial Cell,Urine 1 /hpf (0-5); Urobilinogen,Urine Negative mg/dL (0.0-1.0); WBC,Urine 6 /hpf (0-5)
[2024-11-03 10:13] LABS: INR 0.9 (0.9-1.3); Partial Thromboplastin Time 30.9 Seconds (22.0-36.0); Prothrombin Time 10.3 Seconds (9.0-12.2)
[2024-11-03 10:17] LABS: Alanine Aminotransferase 11 U/L (10-49); Albumin, Serum 3.4 gm/dL (3.5-5.0); Albumin/Globulin Ratio 1.6 (1.2-2.2); Alkaline Phosphatase 138 U/L (46-116); Anion Gap 10 (7-16); Aspartate Amino Transferase 10 U/L (0-34); B-Type Natriuretic Peptide 566 pg/mL (0-100); BUN/Creatinine Ratio 17 Ratio (12-20); Bilirubin,Total 0.2 mg/dL (0.3-1.2); Blood Urea Nitrogen 10 mg/dL (9-23); Calcium 8.1 mg/dL (8.3-10.6); Calcium (Corrected) 8.6 mg/dL (8.5-10.1); Carbon Dioxide 26.2 mMol/L (20.0-31.0); Chloride 109 mMol/L (98-107); Creatinine (Component) 0.6 mg/dL (0.6-1.3); Globulin 2.1 gm/dL (2.3-3.5); Glucose 81 mg/dL (74-106); Magnesium 1.9 mg/dL (1.6-2.6); Osmolality,Calculated 286 (275-295); Potassium 4.7 mMol/L (3.4-5.1); Sodium 145 mMol/L (136-145); Total Protein 5.5 gm/dL (5.7-8.2); Troponin I < 0.020 ng/mL (0.0-0.045); eGFR > 60 See Note
--- NOTE | 2024-11-03 12:16 | PD.EDSOB ---
ED SOB =RME/HPI General Chief Complaint: General Adult/Misc Complain Stated Complaint: LUL LEG SWELLING COUGHING UP BLOOD Time Seen by Provider: 11/03/24 08:51 Arrival date/time: 11/03/24 08:37 29-year-old female with no known past medical history presents to the ED with a complaint of shortness of breath, orthopnea, dyspnea on exertion, hemoptysis, and bilateral lower extremity edema that began after she underwent a 1 week ago. Spouse indicates she had some lower extremity edema but no shortness of breath prior to delivery. RME / HPI RME / HPI Narrative: 11/03/24 08:37 29-year-old female with no known medical history presents to the emergency room with a chief complaint of bilateral lower extremity swelling, shortness of breath with and without exertion, coughing up blood, vaginal discharge x 4 days. Patient had a on 10/27/2024. Your symptoms have progressively gotten worse since then. I have greeted and performed a focused initial assessment of this patient. A comprehensive ED assessment and evaluation of the patient, analysis of all test results, and completion of the medical decision making process will be conducted by additional ED providers. Related Data Home Medications ?Medication ?Instructions ?Recorded ?Confirmed No Known Home Medications 10/22/24 10/25/24 Previous Rx's ?Medication ?Instructions ?Recorded docusate sodium 100 mg capsule 100 mg PO QDAY 30 days #30 caps 10/28/24 hydrocodone 5 mg-acetaminophen 325 1 tab PO Q6H PRN pain 7 days #28 10/28/24 mg tablet tabs ibuprofen 600 mg tablet 600 mg PO Q6H PRN fever or pain 10 10/28/24 days #40 tabs Allergies Allergy/AdvReac Type Severity Reaction Status Date / Time No Known Allergies Allergy Verified 11/03/24 08:40 Review of Systems Review of Systems Systems Reviewed: All systems reviewed, normal except as documented Past Medical History Past Medical History NEUROLOGIC: Negative Neurological Disorders or Seizures CARDIAC: Negative Cardiac Disorders or Congestive Heart Failure RESPIRATORY: Negative Chronic Obstructive Pulmonary Disease (COPD) or Asthma GASTROINTESTINAL: Negative Gastrointestinal Disorders or Hepatitis GENITOURINARY: Negative Genitourinary Disorders or Renal Disease REPRODUCTIVE: Negative Endometriosis, Genital Herpes, Gonorrhea, Pelvic Inflammatory Disease, Previous Pregnancies, Syphilis or Uterine Prolapse MUSCULOSKELETAL: Negative Musculoskeletal Disorders ENDOCRINE: Positive Diabetes Mellitus Type 2 ([employer] DIABETES); Negative Endocrine Disorders or Diabetes Mellitus Type 1 HEMATOLOGIC: Negative Blood Disorders or Sickle Cell Disease OTHER HISTORY: Negative Hospitalization, Autoimmune Disease, Down Syndrome, Developmental Delay, Shingles, Falls, Blood Transfusions, Blood Transfusion Reaction, Anesthesia Reactions, Organ Transplant, Chemotherapy, Radiation Therapy, Hyperbaric Therapy, MRSA, VRSA, Vancomycin-Resistant Enterococci, Human Immunodeficiency Virus (HIV), Chicken Pox, Measles, Mumps, Rubella (J[place]ican Measles), Pertussis, Clostridium Difficile or Cancer Family History FAMILY HISTORY: Negative Family Psychiatric Problems, Family Respiratory Disorders, Family Cardiac Disorders, Family Gastrointestinal Problems, Family Cancer, Family Surgery or Family Anesthesia Reaction Surgical History SURGICAL: Positive Section; Negative Organ Transplant Social History SMOKING STATUS: Never smoker SECOND HAND EXPOSURE: No ED Exam Narrative Physical exam: Alert and oriented 29-year-old female, no acute respiratory distress, resting on gurney comfortably. Blood pressure 134/84, pulse 75, respirations 17 nonlabored, temperature 99.0, O2 sat 96% on room air. Regular rate and rhythm noted. Lungs are diminished at the bases with crackles noted Abdomen is mildly distended (status post ), soft with moderate left lower quadrant and right lower quadrant tenderness with guarding. Extremities reveal 3+ pitting edema bilaterally. Course Course Course Narrative: 29-year-old female with no known past medical history presents to the ED with a complaint of shortness of breath, orthopnea, dyspnea on exertion, hemoptysis, and bilateral lower extremity edema that began after she underwent a 1 week ago. Spouse indicates she had some lower extremity edema but no shortness of breath prior to delivery. Alert and oriented 29-year-old female, no acute respiratory distress, resting on gurney comfortably. Blood pressure 134/84, pulse 75, respirations 17 nonlabored, temperature 99.0, O2 sat 96% on room air. Regular rate and rhythm noted. Lungs are diminished at the bases with crackles noted Abdomen is mildly distended (status post ), soft with moderate left lower quadrant and right lower quadrant tenderness with guarding. Extremities reveal 3+ pitting edema. Labs reveal a normal white count of 6.5, low H&H of 8.3/25.2, normal platelets. Chemistry panel reveals a minimally elevated chloride of 109. Coags are normal. Troponin is normal at less than 0.020 and BNP is elevated at 566. Urinalysis reveals clear colorless urine with a specific gravity of 1.008 with 2+ blood, negative nitrites, positive leukocyte esterase, 6 RBCs, 6 WBCs and rare bacteria. EKG reveals a sinus rhythm at a rate of 64 with no T wave or ST changes. Initially spouse indicates they wanted to leave. Risks of leaving discussed with spouse, who relates information to patient. Risks include worsening condition, shortness of breath, permanent disability, and . After risks explained, patient and spouse are willing to stay for admission. Dr. Rubin, Resident contacted for admission, who agrees to accept patient for admission. Quality Measures none Orders Category Date Time Status CT Screening NOW Care 11/03/24 08:58 Active EKG (ED ONLY) *Do not use* NOW Care 11/03/24 08:57 Completed Insert IV NOW Care 11/03/24 12:[address] angio chest Stat Exams 11/03/24 08:57 Completed EKG (ED Only) Stat Exams 11/03/24 08:57 Draft US venous doppler LE BI Stat Exams 11/03/24 08:57 Completed B-Type Natriuretic Peptide Stat Lab 11/03/24 09:48 Completed CBC Stat Lab 11/03/24 09:48 Completed Comprehensive Metabolic Panel Stat Lab 11/03/24 09:48 Completed Magnesium Stat Lab 11/03/24 09:48 Completed Partial Thromboplastin Time Stat Lab 11/03/24 09:48 Completed Prothrombin Time with INR Stat Lab 11/03/24 09:48 Completed Troponin I Stat Lab 11/03/24 09:48 Completed Urinalysis Stat Lab 11/03/24 09:11 Completed Vital Signs Vital signs: Vital Signs Temperature 99.0 F 11/03/24 08:57 Pulse Rate 75 11/03/24 08:57 Respiratory Rate 17 11/03/24 08:57 Blood Pressure 134/84 H 11/03/24 08:57 Pulse Oximetry (%) 96 11/03/24 08:57 Oxygen Delivery Method Room Air 11/03/24 08:57 Shortness of Breath / Dyspnea MDM Narrative MDM Narrative:: 29-year-old female with no known past medical history presents to the ED with a complaint of shortness of breath, orthopnea, dyspnea on exertion, hemoptysis, and bilateral lower extremity edema that began after she underwent a 1 week ago. Spouse indicates she had some lower extremity edema but no shortness of breath prior to delivery. Alert and oriented 29-year-old female, no acute respiratory distress, resting on gurney comfortably. Blood pressure 134/84, pulse 75, respirations 17 nonlabored, temperature 99.0, O2 sat 96% on room air. Regular rate and rhythm noted. Lungs are diminished at the bases with crackles noted Abdomen is mildly distended (status post ), soft with moderate left lower quadrant and right lower quadrant tenderness with guarding. Extremities reveal 3+ pitting edema. Labs reveal a normal white count of 6.5, low H&H of 8.3/25.2, normal platelets. Chemistry panel reveals a minimally elevated chloride of 109. Coags are normal. Troponin is normal at less than 0.020 and BNP is elevated at 566. Urinalysis reveals clear colorless urine with a specific gravity of 1.008 with 2+ blood, negative nitrites, positive leukocyte esterase, 6 RBCs, 6 WBCs and rare bacteria. EKG reveals a sinus rhythm at a rate of 64 with no T wave or ST changes. Venous duplex findings: Deep venous systems do not demonstrate abnormal echogenicity. All visualized deep veins exhibit compressibility. All visualized deep veins exhibit augmentation. Impression: Negative for deep vein thrombosis CTA Chest: Findings: No thoracic aortic aneurysmal dilatation No pulmonary artery filling defects Mild enlargement cardiac contour with mild edema at the lung bases and small pleural effusions No visualized liver or splenic lesion No pancreatic mass IMPRESSION: Negative for pulmonary artery emboli Suspicious for mild heart failure Patient data External records reviewed:: [facility] previous records Clinical information provided by:: patient and spouse Social determinants that could affect healthcare access:: none Patient has the following chronic illnesses:: N/A How is presenting disease/condition affected by chronic disease/condition?: no chronic disease Evaluation data The following diagnostics were reviewed and interpreted by me:: lab results and radiology exam(s) Lab and/or radiology exams considered but not ordered:: Echocardiogram Interpretation Summary: Labs reveal a normal white count of 6.5, low H&H of 8.3/25.2, normal platelets. Chemistry panel reveals a minimally elevated chloride of 109. Coags are normal. Troponin is normal at less than 0.020 and BNP is elevated at 566. Urinalysis reveals clear colorless urine with a specific gravity of 1.008 with 2+ blood, negative nitrites, positive leukocyte esterase, 6 RBCs, 6 WBCs and rare bacteria. EKG reveals a sinus rhythm at a rate of 64 with no T wave or ST changes. Venous Duplex Findings: Deep venous systems do not demonstrate abnormal echogenicity. All visualized deep veins exhibit compressibility. All visualized deep veins exhibit augmentation. Impression: Negative for deep vein thrombosis CTA Chest: IMPRESSION: Negative for pulmonary artery emboli . Suspicious for mild heart failure Medications / Prescriptions Medications or Prescriptions considered but not ordered:: N/A Medication administrations:: Lasix 40mg IV. Consultations Consultation(s) initiated? (list below): Yes Consultation #1 (Physician, Specialty, Details): Dr. Rubin, Resident for admission. Time: 16:00 Diagnosis Shortness of Breath Differential Diagnosis: acute exacerbation of chronic obstructive airways disease, congestive heart failure, community acquired pneumonia, asthma with exacerbation and pulmonary embolism Most likely diagnosis given after review of the tests above:: Heart Failure, Post-. Admission Indicated Admission indicated?: indicated Explain why admission is indicated or not indicated:: Patient will need IV Diuresis and Echocardiogram for evaluation of heart failure. Admission Request Was there a request for admission?: Yes Admission Attestation Admission request attestation: Discussed case with [] from Hospitalist service regarding admission. Discussed patients ED course, exam findings, labs, and radiology results. The Hospitalist [agrees,declines] to accept the patient for admission. Disposition Plan Disposition Plan: Admit Discharge Plan Plan Patient Disposition: Admit Acute Care w/in Hospital Prescriptions/Referrals Prescriptions/Med Rec: No Action docusate sodium 100 mg Capsule 100 mg PO QDAY 30 Days Qty: 30 0RF hydrocodone-acetaminophen 5-325 mg tablet 1 tab PO Q6H MDD 4 PRN (Reason: pain) 7 Days Qty: 28 0RF ibuprofen 600 mg tablet 600 mg PO Q6H MDD 4 PRN (Reason: fever or pain) 10 Days Qty: 40 0RF No Known Home Medications Referrals: Madai Gaytan MD [Primary Care Provider] - In 1 week Problem List Clinical Impression: Heart failure Patient/Caregiver Discharge Instructions Print Language: Croatian Stand Alone Forms: [employer] Award Info., Patient Portal Info Letter PA/SPIRAL BINDER Supervising Physician PA/SPIRAL BINDER Supervising Physician: Dr. Templeton
--- NOTE | 2024-11-03 15:25 | PC.NURSE ---
PT REMOVED IV. RN ASSESSED THE SITE. NO REDNESS OR SWELLING ON SITE. PT STATES THAT THEY THREW AWAY IV CATH
--- NOTE | 2024-11-03 15:39 | PC.NURSE ---
PT STATES THEY WOULD LIKE TO LEAVE. PROVIDER WAS NOTIFIED ABOUT PTS REQUEST TO LEAVE. PROVIDER EDUCATED PT ABOUT CHF AND THE RISKS ASSOCIATED. PT STILL REQUEST TO LEAVE. RN EDUCATED PT ABOUT THE RISKS OF CHF AND THE SERVERITY OF THE CONDITION. RN ADVICED PT TO STAY TO GET CARE AND HOW THEY WILL GET A ROOM UPSTAIRS. PT AND AGREED TO STAY AND GET CARE
--- NOTE | 2024-11-03 16:46 | ECHO_ITS ---
Transthoracic Echo Report Ht (in): 63 Wt (lb): 168 Exam Location: Echo Lab Status: Emergency Search Optimization Analyst: Missy Burgos Indications: Procedure Performed: BP: 159 / 87 HR: 61 Technical Quality: Technically difficult study MEASUREMENTS (Male / Female) Normal Values 2D ECHO LV Diastolic Diameter PLAX 4.6 cm 4.2 - 5.9 / 3.9 - 5.3 cm LV Systolic Diameter PLAX 3.0 cm IVS Diastolic Thickness 0.4 cm 0.6 - 1.0 / 0.6 - 0.9 cm LVPW Diastolic Thickness 0.9 cm 0.6 - 1.0 / 0.6 - 0.9 cm LV Relative Wall Thickness 0.3 LVOT Diameter 1.5 cm LA Systolic Diameter LX 2.8 cm 3.0 - 4.0 / 2.7 - 3.8 cm LA Volume Index 23.7 cm?/m? 16 - 28 cm?/m? M-MODE Aortic Root Diameter MM 1.6 cm LA Systolic Diameter MM 3.3 cm LA Ao Ratio MM 2.1 AV Cusp Separation MM 1.6 cm DOPPLER AV Peak Velocity 168.0 cm/s AV Peak Gradient 11.3 mmHg AV Mean Gradient 6.0 mmHg AV Velocity Time Integral 38.9 cm LVOT Peak Velocity 75.4 cm/s LVOT Peak Gradient 2.3 mmHg LVOT Velocity Time Integral 18.1 cm LVOT Cardiac Index 1045.8 cm?/min?m? AV Area Cont Eq vti 0.8 cm? AV Area Cont Eq pk 0.8 cm? MV Area PHT 3.9 cm? MR Peak Velocity 304.0 cm/s MR Peak Gradient 37.0 mmHg Mitral E Point Velocity 129.0 cm/s Mitral A Point Velocity 26.7 cm/s Mitral E to A Ratio 4.8 LV E' Lateral Velocity 12.8 cm/s Mitral E to LV E' Lateral Ratio 10.1 LV E' Septal Velocity 10.0 cm/s Mitral E to LV E' Septal Ratio 12.9 TR Peak Velocity 285.5 cm/s TR Peak Gradient 32.6 mmHg PV Peak Velocity 121.0 cm/s PV Peak Gradient 5.9 mmHg FINDINGS Left Ventricle Normal left ventricular size, wall thickness, systolic function with no obvious regional wall motion abnormalities. Normal left ventricular diastolic filling pattern for age. The ejection fraction is visually estimated at 55-60%. Right Ventricle The right ventricle is normal in size and systolic function. The estimated right ventricular systolic pressure, 51 mmHg. RAP 5. Left Atrium The left atrium is normal by two-dimensional, color flow and Doppler imaging with no structural abnormalities, no thrombus formation present. Right Atrium The right atrium is normal by two-dimensional imaging, color flow and Doppler imaging with no structural abnormalities, no thrombus formation present. Atrial Septum The interatrial septum appears normal with no evidence of a shunt. Aorta The aorta is normal by two-dimensional, color flow and Doppler interrogation. Mitral Valve The mitral valve is normal by two-dimensional, color flow and Doppler interrogation. Trace mitral regurgitation. Aortic Valve The aortic valve is trileaflet and normal by two-dimensional, color flow and Doppler interrogation. There is no significant aortic valve regurgitation. Tricuspid Valve There is mild tricuspid valve regurgitation. Pulmonic Valve Trivial pulmonic valve regurgitation. Vessels The pulmonary artery appears normal. The inferior vena cava pulmonary and hepatic veins appear normal. Pericardium The pericardium is normal by two-dimensional imaging. There is no significant pericardial effusion. 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 Normal left ventricular diastolic function. Estimated EF 55-60%. Normal RV size and function. Estimated RVSP is 35-40 mm hg. Trace MR. Mild TR. Trivial PI. IVC normal size and no pericardial effusion. Benedict Oneil (Electronically Signed) Final Date: 03 November 2024 22:33
[2024-11-03] MEDS: FUROSEMIDE INJ 10 MG/ML 4ML VIAL 40 MG IVP (16:55)
--- NOTE | 2024-11-03 16:57 | PD.RESHP ---
Documentation for date of: 11/03/24 [facility] History of Present Illness History of present illness: 29 yo female G1,P1, with PMH of gestational diabetes, who had a delivery on 10/27 presented to [facility] on 11/03 due to dyspnea and lower extremity edema. Patient states she had bilateral leg sweling for one month prior to delivery that progressively worsened after delivery. . For the past few days however, patient started experiencing progressively worsening shortness of breath, that is worsened by laying flat (patient is unable to lay flat), she denies cough, hemoptysis or chest pain. Patient also denies vaginal bleeding. ER course: On arrival patient's vitals within normal limits, saturating adequately on room air, pertinent labs hemoglobin 8.3, chloride 109, BNP 566, albumin 3.4, total protein 5.5. Urine protein negative. Chest CT shows some vascular congestion, no PE, bilateral lower extremity Doppler no DVT. Patient was given Lasix 40 x 1 while in the ED. 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 Echo ordered PMH: Gestational diabetes Family: None Surgical: Appendectomy, Social: No drugs alcohol or smoking. Review of Systems Review of Systems Systems Reviewed: All systems reviewed, normal except as documented Exam Vital Signs Temp Pulse Resp BP Pulse Ox O2 Del Method 98.5 F 61 16 159/87 H 94 L Room Air 11/03/24 13:32 11/03/24 16:55 11/03/24 13:32 11/03/24 16:55 11/03/24 13:32 11/03/24 13:32 Narrative Exam GENERAL: Awake, alert and oriented. No acute distress. HEENT: Normocephalic, atraumatic and nontender.? Pupils are equal and reactive to light and accommodation.? Oral mucosa moist. NECK: Supple without adenopathy. Trachea midline. Nontender, carotid pulse 2+ bilaterally without bruits, no JVD.? CHEST: Heart rate and rythm normal, no murmurs, gallops auscultated. S1 & 2 normal insensity. Nontender on palpation, no deformity and no crepitus. LUNGS: Lung sounds are clear.? No wheezing, rales or ronchi.? No intercostal subcostal retraction. Room air ABDOMEN: Soft,symmetric , nontender, no guarding or rebound tenderness. No abnormal masses palpated.? Bowel sounds are normoactive in all 4 quadrants. EXTREMITIES: Nontender.? 3+ pitting edema extending to mid sotelo. SKIN: No rashes noted. NEURO:? Cranial nerves intact.? There is no focalization.? GCS is 15. Results: Labs 11/04/24 05:18 11/04/24 05:18 Labs: Short CBC 11/03/24 Range/Units 09:48 WBC 6.5 D (3.6-11.0) Thou/mm3 Hgb 8.3 L (12.0-16.0) g/dL Hct 25.2 L (36.0-46.0) % Plt Count 209 D (140-440) Thou/mm3 BMP 11/03/24 09:48 Sodium 145 Potassium 4.7 Chloride 109 H Carbon Dioxide 26.2 BUN 10 Creatinine 0.6 Glucose 81 Calcium 8.1 L Cardiac Enzymes 11/03/24 Range/Units 09:48 Troponin I < 0.020 (0.0-0.045) ng/mL Liver Function 11/03/24 Range/Units 09:48 Total Bilirubin 0.2 L (0.3-1.2) mg/dL AST 10 (0-34) U/L ALT 11 (10-49) U/L Alkaline Phosphatase 138 H (46-116) U/L Albumin 3.4 L (3.5-5.0) gm/dL Urine 11/03/24 Range/Units 09:11 Urine Color Colorless A (Lt Yel-Yel) Urine Clarity Clear (Clear/Hazy) Urine pH 7.5 H (5.0-7.0) Ur Specific Lat[place] 1.008 (1.001-1.035) Urine Protein Negative (Neg - Trace) Urine Glucose (UA) Negative (Negative) Quality Measures Quality Measures none Medications Home Medications and Allergies Allergies Allergy/AdvReac Type Severity Reaction Status Date / Time No Known Allergies Allergy Verified 11/03/24 08:40 Visit Medications Acetaminophen (Acetaminophen 325 Mg Tablet) 650 mg PO Q6H PRN PRN Reason: Fever >100.4 Stop: 12/03/24 16:45 Acetaminophen (Acetaminophen 325 Mg Tablet) 650 mg PO Q6H PRN PRN Reason: PAIN SCALE 1-3 (mild Stop: 12/03/24 16:45 Furosemide (Furosemide Inj 10 Mg/Ml 4ml Vial) 40 mg IVP QDAY LIBORIO Stop: 12/04/24 08:59 Heparin Sodium (Porcine) (Heparin Sod Inj 5000 Unit/Ml Vial) 5,000 unit SC Q8HR LIBORIO Stop: 11/17/24 21:59 Ondansetron HCl (Ondansetron Inj 2 Mg/Ml Inj 2 Ml) 4 mg IVP Q6H PRN; Protocol PRN Reason: NAUSEA OR VOMITING Stop: 12/03/24 16:45 Sennosides (Senna Tablet) 2 tab PO BID PRN; Protocol PRN Reason: CONSTIPATION Stop: 12/03/24 16:45 Discontinued Medications Furosemide (Furosemide Inj 10 Mg/Ml 4ml Vial) 40 mg IVP X1 ONE Stop: 11/03/24 15:56 Last Admin: 11/03/24 16:55 Dose: 40 mg Assessment & Plan Plan 29 yo female G1,P1, with PMH of gestational diabetes, who had a delivery on 10/27 presented to [facility] on 11/03 due to dyspnea and lower extremity edema. Patient states she had bilateral leg sweling for one month prior to delivery that progressively worsened after delivery. 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 Echo ordered #Dyspnea & Orthopnea #Lower extremity edema #Possible CHF -DDx: Suspected peripartum cardiomyopathy - Patient had a delivery in October 27, afterwards patient developed progressively worsening dyspnea, orthopnea and bilateral lower extremity edema - Chest CT ruled out PE, however revealed pulmonary vascular congestion. 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 I discussed the case with the residents and agree with the findings and plans of care as documented above. Patient is a 29 years old female, G1, P1 with past medical history of gestational diabetes presented to the ED with complaint of dyspnea and lower extremity edema. Patient recently had a on 10/27. She had bilateral leg swelling 1 month prior to delivery but has been having progressively worsening swelling following the delivery. Patient is also having orthopnea and PND along with exertional dyspnea. Denies any fever, chest pain, palpitation or cough. In the ED, vitals were within normal limits. Saturating well on room air. Lab results show hemoglobin of 8.3, BNP 566. Bilateral lower extremity Doppler was obtained which were negative for DVT. Chest CT showed some vascular congestion. After examination of the patient and review of the clinical data I feel that this patient needs admission to the hospital for further treatment/evaluation of volume overload and possibility of CHF. Will start her on Lasix 40 mg IV daily, we will obtain strict I's and O's. Will obtain cardiology and OB consult. Echocardiography ordered. Patient also has anemia, possibly from delivery. Delroy Cole MD
--- NOTE | 2024-11-03 18:07 | PD.RESCONSUL ---
HPI Data of Consult Requesting Physician: Delroy Cole MD Admitting Provider: Delroy Cole MD Attending Provider: Delroy Cole MD Primary Care Provider: Madai Gaytan MD Consult Narrative History of present illness: CC: Shortness of Breath and leg swelling. Patient is a 29-year-old female with unremarkable past medical history. Recent admission to [facility] on October 25, 2024 for labor and delivery, 1, required as patient had limited cervical dilation. During diagnosed with gestational diabetes, patient unable to recall glucose levels or A1c, stated controlled by diet and did not require insulin use. During some lower extremity edema noted but worsened shortly after delivery, noted to be bilateral mid thigh level, since then improved. Patient stated increased work of breathing and dyspnea. Dyspnea when laying flat, paroxysmal nocturnal dyspnea. Denied use of pillows to sleep at night. Denied palpitations or chest pain. Denied cardiac history. Denied family cardiac history. Denied previous history of shortness of breath. Denied any recent sick contacts. Denied COVID or influenza. Afebrile. Denied autoimmune disorders. ER Course: Vitals: BP 134/84, HR 75, RR 17, temperature 99, SpO2 96% RA Weight: 76.04 CMP: Sodium 145, potassium 4.7, chloride 109, bicarb 26.2, BUN 10, creatinine 0.6, GFR greater than 60, AST 10, ALT 11 CBC: Hemoglobin 8.3, hematocrit 25.2, MCV 81, platelets 209 11/03/2024: Venous Doppler negative CTA chest (11/03/2024): Mild enlargement of cardiac contour with mild edema at the left lung bases and small left pleural effusion. PE negative BMP: 566 EKG: Regular sinus, HR 60, QT 401 Medication: Lasix 40 mg IV X 1 Cardiology Consulted: New onset of CHF. PMH: None Past Surgical History: Appendectomy Past Family History: Father-Diabetes Mellitus Mother-none denied family history of cardiac disease Home Medication: None Social History: No Alcohol Use Never Smoker No illicit drug use Allergies: None Code Status: Full Code cc:: cc: Delroy Cole MD Review of Systems Review of Systems Narrative Review of Systems: General appearance: NO weight change, NO fatigue, NO weakness, NO fever, NO chills, NO night sweats, No cough Skin: NO rash, NO itching, NO sores, NO moles HEENT: NO Trauma, NO nausea, NO vomiting, NO visual changes, NO blurry vision, NO double vision, NO tinnitus, NO vertigo, NO ear discharge, NO rhinorrhea, NO stuffiness, NO sneezing, NO allergy, NO epistaxis. NO Hoarseness, NO sore throat, NO swollen neck. Cardiac: NO Palpitations, YES dyspnea on exertion, YES orthopnea, YES paroxysmal nocturnal dyspnea, YES edema Respiratory: NO Shortness of Breath, NO Wheezing, NO Cough, NO Sputum, NO hemoptysis GI:NO appetite, NO nausea, NO vomiting, NO dysphagia, NO changes in bowel frequency, NO stool color, NO diarrhea, NO constipation, NO hemetemesis, NO hemorrhoids, NO melena, NO hematechezia, NO abdominal pain, NO jaundice Renal: NO frequency, NO hesitancy, NO urgency, NO hematuria, NO nocturia, NO incontinence MSK: NO muscle weakness, NO gout, NO arthritis, NO muscle stiffness Neuro: NO headaches, NO tremors, NO weakness, NO paralysis, NO seizures, NO loss of consciousness, NO numbness. Hem: NO anemia, NO easy bruising/bleeding, NO petechiae, NO purpura Endo: NO heat/cold intolerance, NO excessive sweating, NO polyuria, NO polydipsia, NO polyphagia, NO thyroid problems, yes gestational diabetes Pysch: NO mood, NO anxiety, NO depression Exam Vital Signs Temp Pulse Resp BP Pulse Ox O2 Del Method 98.5 F 57 L 16 159/87 H 94 L Room Air 11/03/24 13:32 11/03/24 16:57 11/03/24 13:32 11/03/24 16:55 11/03/24 13:32 11/03/24 13:32 Narrative Exam General Appearance: Alert & Oriented X3, well-nourished female who is lying in bed in no acute distress on room air spO 95% HEENT: Skull symmetrical and atraumatic. Conjunctivae pink and moist. Pupils equal, round, reactive to light and accommodation (PERRL). External ear without lesion or discharge. Straight, nares patient, mucosa pink, no discharge. Cardio: Normal Rate and Rhythm with S1 and S2 heart sounds. No murmurs or extra heart sounds auscultated. No bruits on carotid auscultation. Yes peripheral edema 2+, below knee. Pedal pulse 3+ Lungs: Symmetric with good expansion. Chest and back non-tender. Breath sounds vesicular without crackles, wheezing or rhonchi Abdomen: Non-tender, Non-distended, Normal Reactive Bowel Sounds Neuro: Alert, cooperative, oriented to person, place, and time. Speech clear. CN grossly intact. Upper motor strength 5/5 and Lower motor strength 5/5. Sensation intact. Results Labs 11/03/24 09:48 11/03/24 09:48 Labs: Short CBC 11/03/24 Range/Units 09:48 WBC 6.5 D (3.6-11.0) Thou/mm3 Hgb 8.3 L (12.0-16.0) g/dL Hct 25.2 L (36.0-46.0) % Plt Count 209 D (140-440) Thou/mm3 BMP 11/03/24 09:48 Sodium 145 Potassium 4.7 Chloride 109 H Carbon Dioxide 26.2 BUN 10 Creatinine 0.6 Glucose 81 Calcium 8.1 L Cardiac Enzymes 11/03/24 Range/Units 09:48 Troponin I < 0.020 (0.0-0.045) ng/mL Liver Function 11/03/24 Range/Units 09:48 Total Bilirubin 0.2 L (0.3-1.2) mg/dL AST 10 (0-34) U/L ALT 11 (10-49) U/L Alkaline Phosphatase 138 H (46-116) U/L Albumin 3.4 L (3.5-5.0) gm/dL Urine 11/03/24 Range/Units 09:11 Urine Color Colorless A (Lt Yel-Yel) Urine Clarity Clear (Clear/Hazy) Urine pH 7.5 H (5.0-7.0) Ur Specific [place] 1.008 (1.001-1.035) Urine Protein Negative (Neg - Trace) Urine Glucose (UA) Negative (Negative) Quality Measures Quality Measures none Medications Home Medications and Allergies Home Medications ?Medication ?Instructions ?Recorded ?Confirmed ?Type No Known Home Medications 10/22/24 10/25/24 History Allergies Allergy/AdvReac Type Severity Reaction Status Date / Time No Known Allergies Allergy Verified 11/03/24 08:40 Visit Medications Acetaminophen (Acetaminophen 325 Mg Tablet) 650 mg PO Q6H PRN PRN Reason: Fever >100.4 Stop: 12/03/24 16:45 Acetaminophen (Acetaminophen 325 Mg Tablet) 650 mg PO Q6H PRN PRN Reason: PAIN SCALE 1-3 (mild Stop: 12/03/24 16:45 Furosemide (Furosemide Inj 10 Mg/Ml 4ml Vial) 40 mg IVP QDAY LIBORIO Stop: 12/04/24 08:59 Heparin Sodium (Porcine) (Heparin Sod Inj 5000 Unit/Ml Vial) 5,000 unit SC Q8HR LIBORIO Stop: 11/17/24 21:59 Ondansetron HCl (Ondansetron Inj 2 Mg/Ml Inj 2 Ml) 4 mg IVP Q6H PRN; Protocol PRN Reason: NAUSEA OR VOMITING Stop: 12/03/24 16:45 Sennosides (Senna Tablet) 2 tab PO BID PRN; Protocol PRN Reason: CONSTIPATION Stop: 12/03/24 16:45 Discontinued Medications Furosemide (Furosemide Inj 10 Mg/Ml 4ml Vial) 40 mg IVP X1 ONE Stop: 11/03/24 15:56 Last Admin: 11/03/24 16:55 Dose: 40 mg Assessment & Plan Plan Patient is a 29-year-old female with unremarkable past medical history recent L&D via c-setion who was admitted on 11/03/2024 for new onset CHF exacerbation. Cardiology consulted for CHF exacerbation. new onset of Congestive Heart Failure Etiology: likely in the setting of cardiomyopathy given L&D 1 week ago in the setting of dilated cardiomyopathy. DDx: Less likely secondary to MD as troponin unremarkable, no chest pain, and EKG sinus. PE ruled out given CTA chest negative. CTA chest (11/03/2024): Mild enlargement of cardiac contour with mild edema at the left lung bases and small left pleural effusion. PE negative BMP: 566 EKG: Regular sinus, HR 60, QT 401 NYHA Class: II ASCVD:___ Plan: -Lasix 40 mg IV qday -Echo Stat -TSH AM labs -Lipid Panel AM Labs -A1c AM labs -Consider NEVILLE, to rule out autoimmune disease -K>4 and Mg >2 -SpO >90%, support PRN -Daily Weights, Strict Ins and Outs, Fluid Striction (1500), Sodium Restriction 2 grams per day #Microcytic Anemia On admission patient noted to have microcytic anemia, given recent and , iron deficiency can not be ruled out. Less likely secondary to jalyn blood loss vs Thiamine/Folic deficiency 11/03/2024: hgb 8.3, hct 25.2, MCV 81 Plan -consider Iron Panel, ferritin, folic, and thiamine -monitor hgb, maintina hgb >7 Health Maintenance: Disp: Pt is currently admitted to floors for further management of CHF, awaiting Echo FEN: Cardiac Diet DVT: on subQ heparin q8hr Code: Full code - The patient's plan was discussed with attending Dr. Clarice Chan MD PGY1 Internal Medicine
[2024-11-03] MEDS: HEPARIN SOD INJ 5000 UNIT/ML VIAL SC (22:08)
[2024-11-04] VITALS: BP 124/79; PULSE 48; PULSE 49; RESP 20; TEMP 36.7; O2SAT 99
[2024-11-04 04:00] VITALS: BP 121/66; PULSE 52; PULSE 54; RESP 20; TEMP 36.8; O2SAT 99
--- NOTE | 2024-11-04 04:17 | ESCONSULT_ITS ---
D[employer]ER HPI Data of Consult Requesting Physician: Delroy Cole MD Primary Care Provider: Madai Gaytan MD Consult Narrative History of present illness: Patient currently admitted to medicine service, presenting with dizziness and shortness of breath, which have been worsening over the last 7 days. She is status post delivery on 10/28/2024 following an IVF . The patient reports progressively worsening lower extremity edema since her C- section. She has a history of gestational diabetes during her recent . 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 The patient underwent a CT scan of the chest to rule out pulmonary embolism. She has been evaluated by the cardiology team, who suspect cardiomyopathy and possible history of dilated cardiomyopathy. An echocardiogram is pending at this time. She is a 29-year-old woman who delivered via on October 28, 2024. Her was achieved through IVF. The patient has a history of gestational diabetes during her recent . Her surgical history includes the recent section on 10/28/2024. The patient reports positive symptoms for dizziness, lower extremity edema, and shortness of breath. Diagnostic Test Results and Labs: - CT scan of chest: Ruled out pulmonary embolism - BNP: Elevated to 566 - Urine proteins: Negative - EKG: Normal study - CT angiography of chest: Mild enlargement of cardiac contour with lung base edema cc:: cc: Delroy Cole MD Review of Systems Review of Systems Systems Reviewed: All systems reviewed, normal except as documented Meds Home Medications and Allergies Home Medications ?Medication ?Instructions ?Recorded ?Confirmed ?Type No Known Home Medications 10/22/2409/30 History Allergies Allergy/AdvReac Type Severity Reaction Status Date / Time No Known Allergies Allergy Verified 11/03/24 08:40 Exam - [employer]ER Vital Signs Temp Pulse Resp BP Pulse Ox O2 Del Method 98.0 F 49 L 20 124/79 99 Room Air 11/04/24 00:00 11/04/24 00:00 11/04/24 00:00 11/04/24 00:00 11/04/24 00:00 11/04/24 00:00 Constitutional Constitutional: no acute distress Routine HEENT Exam Head: Present normocephalic and atraumatic Eye: Present EOMI and PERRL ENT: Present mucous membranes moist Routine Abdominal Exam Abdominal: Present soft and normoactive bowel sounds Routine Extremities Exam Extremities: Present full ROM Routine Skin Exam Skin: Present intact and dry Routine Psychiatric Exam Psychiatric: Present normal affect and normal thought process D[employer] CLE[employer]ER - Results Labs 11/03/24 09:48 11/03/24 09:48 Labs: Short CBC 11/03/24 Range/Units 09:48 WBC 6.5 D (3.6-11.0) Thou/mm3 Hgb 8.3 L (12.0-16.0) g/dL Hct 25.2 L (36.0-46.0) % Plt Count 209 D (140-440) Thou/mm3 BMP 11/03/24 09:48 Sodium 145 Potassium 4.7 Chloride 109 H Carbon Dioxide 26.2 BUN 10 Creatinine 0.6 Glucose 81 Calcium 8.1 L Cardiac Enzymes 11/03/24 Range/Units 09:48 Troponin I < 0.020 (0.0-0.045) ng/mL Liver Function 11/03/24 Range/Units 09:48 Total Bilirubin 0.2 L (0.3-1.2) mg/dL AST 10 (0-34) U/L ALT 11 (10-49) U/L Alkaline Phosphatase 138 H (46-116) U/L Albumin 3.4 L (3.5-5.0) gm/dL Urine 11/03/24 Range/Units 09:11 Urine Color Colorless A (Lt Yel-Yel) Urine Clarity Clear (Clear/Hazy) Urine pH 7.5 H (5.0-7.0) Ur Specific Chalmers 1.008 (1.001-1.035) Urine Protein Negative (Neg - Trace) Urine Glucose (UA) Negative (Negative) Assessment and Plan Assessment and plan (1) delivery delivered: Status: Acute (2) Heart failure: Status: Acute (3) Conceived by in vitro fertilization: Status: Acute Additional Assessment & Plan Additional Plan: Inpatient Consultation - Medicine Service Co-Management: - Currently admitted to medicine service with 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 - Cardiology consultation favors cardiomyopathy with possible history of dilated cardiomyopathy. - Myocardial infarction less likely due to unremarkable troponins and normal EKG study. - Pulmonary embolism ruled out by CT scan of the chest. - CT angiography shows mild enlargement of cardiac contour with lung base edema. - Pending echocardiogram for further evaluation. Plan: - Continue primary management as co-managed by medicine and cardiology teams. - Monitor patient with serial labs. - Treat as needed based on ongoing evaluations. - Complete pending echocardiogram. - OBGYN team available on standby to assist as needed. Recent Section: - Status post section delivery on 10/25/2024 (10 days ago). - Progressively worsening lower extremity edema since the . Plan: - No surgical or gynecologic intervention required at this time. Hypertension: - Blood pressure noted to be elevated at 566 (units not specified, likely a typo). - Urine proteins were negative. Plan: - Continue monitoring as part of overall co-management by medicine and cardiology teams.
--- NOTE | 2024-11-04 04:17 | PD.GYNPROC ---
Operative Note - [facility] [employer] Procedure Date of procedure: 11/25/24 Procedure Performed: Primary low-transverse section Indication: 29-year-old G1, P0 who is now status post 3 days of induction of labor for IVF Failed induction of labor Possible chorioamnionitis Maternal exhaustion and request Anesthesia type: Spinal Procedure description: Informed consent was obtained and the patient was taken to the operating room. Identity was confirmed by double identifiers and she was placed on the operating table. Spinal anesthesia was administered and she was positioned in the supine position. The abdomen and perineum were prepped in the usual sterile fashion and a Francisco catheter was placed to continuous drainage. Sterile drapes were applied. The incision site was tested for adequacy of anesthesia. A Pfannenstiel skin incision was made with a scalpel and carried to the subcutaneous fat up to the rectus fascia. The rectus fascia was incised on either side of the midline and the incisions were extended bilaterally. The fascia was gently dissected off the ventral surface of the rectus muscle both superiorly and inferiorly. The rectus bellies were gently in the midline and the peritoneum was identified and entered bluntly using the surgeon's finger. The peritoneal opening was now stretched to create an adequate opening for access to the uterus. Samy O-ring retractor was placed for adequate visualization. The anterior surface of the uterus was palpated. The bladder reflection was identified and a Marcie Grissom low transverse uterine incision was made in the lower uterine segment taking care to avoid the bladder. Uterine entry was accomplished bluntly and the opening was stretched to create adequate room. The amniotic membranes were now ruptured and clear amniotic fluid was released. The fetus was noted to be in the vertex position. The head was gently elevated out of the maternal pelvis and single loop of nuchal cord was found around the neck. The cord was released and the rest of the shoulders and body were delivered by gentle fundal pressure. Umbilical cord was doubly clamped, divided and the infant was handed over to the waiting team. Cord gas samples were obtained. The placenta was delivered by gentle traction on the umbilical cord. The interior of the uterus was now thoroughly cleaned of all blood and debris and membranes. The hysterotomy angles were grasped by a pair of Allis clamps and the hysterotomy was closed using 1 Monocryl suture in 2 layers. The first layer was used to approximate the muscle in a running locked fashion, the second layer was used to approximate the thickness of the myometrium and uterine serosa in an imbricated manner. Once the repair was completed the hysterotomy was inspected and noted to be adequately hemostatic. The hysterotomy was once again inspected and hemostasis was noted to be satisfactory. The Samy retractor was now removed. The peritoneal edges were re approximated. The rectus muscles were re approximated. The rectus fascia was now repaired using 0 Vicryl suture in a running fashion. The subcutaneous layer was now copiously irrigated using warm normal saline. All bleeding points were cauterized using the Bovie. The subcutaneous fat was closed using 3-0 Vicryl. The skin was closed using 4-0 Monocryl in a subcuticular fashion. The skin was cleaned and a sterile dressing was applied. The patient was now undraped, the abdomen and back were thoroughly cleaned and she was transferred to the recovery room in a stable and awake condition. The patient tolerated the entire procedure well. No complications were encountered. All instrument, sponge and lap counts were correct x2. Estimated blood loss (ml): 600 Complications: none Diagnosis Discharge Diagnosis (1) Supervision of high risk in third trimester: Status: Acute (2) Conceived by in vitro fertilization: Status: Acute (3) Gestational diabetes, diet controlled: Status: Acute (4) delivery delivered: Status: Acute Problem List Completed Was Problem List Reviewed/Reconciled?: Yes (3) Gestational diabetes, diet controlled Qualifiers: Trimester: third trimester Qualified Code(s): O24.410 - Gestational diabetes mellitus in , diet controlled
[2024-11-04] MEDS: HEPARIN SOD INJ 5000 UNIT/ML VIAL SC ×2 (05:12→13:35)
[2024-11-04 05:37] VITALS: BMI 27.7
[2024-11-04 05:40] LABS: Basophils % (Auto) 0 % (0-2.5); Eosinophils # (Auto) 0.1 Thou/mm3 (0.0-0.5); Eosinophils % (Auto) 1 % (0-10); Hematocrit 27.8 % (36.0-46.0); Immature Granulocytes % (Auto) 1 % (0-0); Immature Granulocytes Auto 0.04 Thou/mm3 (0.00-0.00); Lymphocytes # (Auto) 1.7 Thou/mm3 (1.0-4.8); Lymphocytes % (Auto) 24 % (10-50); Mean Corpuscular HGB Conc 32.4 g/dl (31.0-37.0); Mean Corpuscular Hemoglobin 26.1 pg (25.0-35.0); Mean Corpuscular Volume 81 fL (80-100); Monocytes # (Auto) 0.6 Thou/mm3 (0.0-0.8); Monocytes % (Auto) 9 % (0-12); Neutrophils # (Auto) 4.6 Thou/mm3 (1.8-7.7); Neutrophils % (Auto) 65 % (37-80); Nucleated Red Blood Cell % 0 /100 WBC (0); Platelet Count 252 Thou/mm3 (140-440); RDW Standard Deviation 44.2 fL (36.4-46.3); Red Blood Count 3.45 Miln/mm3 (4.00-5.20); White Blood Count 7.1 Thou/mm3 (3.6-11.0)
[2024-11-04 05:47] LABS: Glucose Estimated Average 97 mg/dL (80-131)
[2024-11-04 06:05] LABS: Anion Gap 11 (7-16); BUN/Creatinine Ratio 17 Ratio (12-20); Blood Urea Nitrogen 10 mg/dL (9-23); Calcium 8.1 mg/dL (8.3-10.6); Cardiac Risk Estimate 4.9 RATIO (3.7-5.6); Chloride 107 mMol/L (98-107); Cholesterol 191 mg/dL (132-200); Creatinine (Component) 0.6 mg/dL (0.6-1.3); Estimated Creatinine Clearance 129.5 mL/min (>60); Glucose 96 mg/dL (74-106); HDL Cholesterol 39 mg/dL (40-60); LDL Cholesterol,Calculated 100 mg/dL (0-130); Magnesium 1.8 mg/dL (1.6-2.6); Osmolality,Calculated 285 (275-295); Phosphorous 4.4 mg/dL (2.4-5.1); Potassium 4.1 mMol/L (3.4-5.1); Sodium 144 mMol/L (136-145); Thyroid Stimulating Hormone 1.29 uIU/mL (0.55-4.78); Triglycerides 262 mg/dL (30-150); eGFR > 60 See Note
[2024-11-04 08:00] VITALS: BP 134/86; PULSE 56; PULSE 64; RESP 21; TEMP 36.8; O2SAT 95
[2024-11-04 09:46] LABS: C-Reactive Protein 6.8 mg/dL (0.0-0.9)
--- NOTE | 2024-11-04 09:48 | PD.RESPRO ---
Documentation for date of: 11/04/24 Subjective Subjective Interval history: Patient is a 29-year-old female with unremarkable past medical history. Recent admission to [facility] on October 25, 2024 for labor and delivery, 1, required as patient had limited cervical dilation. During diagnosed with gestational diabetes, patient unable to recall glucose levels or A1c, stated controlled by diet and did not require insulin use. During some lower extremity edema noted but worsened shortly after delivery, noted to be bilateral mid thigh level, since then improved. Patient stated increased work of breathing and dyspnea. Dyspnea when laying flat, paroxysmal nocturnal dyspnea. Denied use of pillows to sleep at night. Denied palpitations or chest pain. Denied cardiac history. Denied family cardiac history. Denied previous history of shortness of breath. Denied any recent sick contacts. Denied COVID or influenza. Afebrile. Denied autoimmune disorders. ER Course: Vitals: BP 134/84, HR 75, RR 17, temperature 99, SpO2 96% RA Weight: 76.04 CMP: Sodium 145, potassium 4.7, chloride 109, bicarb 26.2, BUN 10, creatinine 0.6, GFR greater than 60, AST 10, ALT 11 CBC: Hemoglobin 8.3, hematocrit 25.2, MCV 81, platelets 209 11/03/2024: Venous Doppler negative CTA chest (11/03/2024): Mild enlargement of cardiac contour with mild edema at the left lung bases and small left pleural effusion. PE negative BNP: 566 EKG: Regular sinus, HR 60, QT 401 Medication: Lasix 40 mg IV X 1 11/04/2024: No overnight events. NO arrhythmias noted overnight or in telebox while at bedside. Patient denied chest pain or pressure. No increased work of breathing and denied SOB. Improved SOB with supine position, No orthopnea. NO PND. Improved lower peripheral edema. Echo EF 55-60%, no cardiomyopathy noted. Patient stated the nurses were not collecting urine output despite going frequently. Informed patient to call nurse with each void to record. Counseled patient to continue vitamins while breast feeding in the setting of anemia, follow up with OBGYN physician to determine duration. Please have patient follow up with PCP and OBGYN for peripheral edema/fluid overload and continue lasix 20 mg qday for 1 week upon discharge. Exam Vital Signs Temp Pulse Resp BP Pulse Ox O2 Del Method 98.3 F 64 21 H 134/86 H 95 Room Air 11/04/24 08:00 11/04/24 08:00 11/04/24 08:00 11/04/24 08:00 11/04/24 08:00 11/04/24 08:00 Narrative Exam General Appearance: Alert & Oriented X3, well-nourished female who is lying in bed in no acute distress. free of discharge and no erythema noted. HEENT: Skull symmetrical and atraumatic. Conjunctivae pink and moist. Pupils equal, round, reactive to light and accommodation (PERRL). External ear without lesion or discharge. Straight, nares patient, mucosa pink, no discharge. Cardio: Normal Rate and Rhythm with S1 and S2 heart sounds. No murmurs or extra heart sounds auscultated. No bruits on carotid auscultation. Yes peripheral edema trace to trace to 1+, below knee. Pedal pulse 3+ Lungs: Symmetric with good expansion. Chest and back non-tender. Breath sounds vesicular without crackles, wheezing or rhonchi Abdomen: Non-tender, Non-distended, Normal Reactive Bowel Sounds Neuro: Alert, cooperative, oriented to person, place, and time. Speech clear. CN grossly intact. Upper motor strength 5/5 and Lower motor strength 5/5. Sensation Objective Labs 11/04/24 05:18 11/04/24 05:18 Labs: Laboratory Results - last 24 hr 11/03/24 11/03/24 11/04/24 09:11 09:48 05:18 WBC 6.5 D 7.1 RBC 3.13 L 3.45 L Hgb 8.3 L 9.0 L Hct 25.2 L 27.8 L MCV 81 81 MCH 26.5 26.1 MCHC 32.9 32.4 RDW Std Deviation 43.8 44.2 Plt Count 209 D 252 D Neut % (Auto) 69 65 Lymph % (Auto) 21 24 [place] % (Auto) 8 9 Eos % (Auto) 2 1 Baso % (Auto) 0 0 Neut # (Auto) 4.5 4.6 Lymph # (Auto) 1.4 1.7 [place] # (Auto) 0.5 0.6 Eos # (Auto) 0.1 0.1 Baso # (Auto) 0.0 0.0 Immature Gran # (Auto) 0.05 H 0.04 H Absolute Nucleated RBC 0.00 0.00 Immature Gran % 1 H 1 H Nucleated RBC % 0 0 PT 10.3 INR 0.9 APTT 30.9 Sodium 145 144 Potassium 4.7 4.1 D Chloride 109 H 107 Carbon Dioxide 26.2 26.0 Anion Gap 10 11 BUN 10 10 Creatinine 0.6 0.6 Estim Creat Clear Calc 134.0 129.5 eGFR > 60 > 60 BUN/Creatinine Ratio 17 17 Glucose [address] Glu mg/dL 97 Hemoglobin A1c 5.0 Calculated Osmolality 286 285 Calcium 8.1 L 8.1 L Corrected Calcium 8.6 Phosphorus 4.4 Magnesium 1.9 1.8 Total Bilirubin 0.2 L AST 10 ALT 11 Alkaline Phosphatase 138 H Troponin I < 0.020 C-Reactive Prot, Quant 6.8 H B-Natriuretic Peptide 566 H* Total Protein 5.5 L Albumin 3.4 L Globulin 2.1 L Albumin/Globulin Ratio 1.6 Triglycerides Cholesterol LDL Cholesterol, Calc HDL Cholesterol Cholesterol/HDL Ratio TSH Ur Collection Type Clean Catch Urine Color Colorless A Urine Clarity Clear Urine pH 7.5 H Ur Specific Lavinia 1.008 Urine Protein Negative Urine Glucose (UA) Negative Urine Ketones Negative Urine Blood 2+ A Urine Nitrite Negative Urine Bilirubin Negative Urine Urobilinogen (Auto) Negative Ur Leukocyte Esterase Positive Urine RBC 6 H Urine WBC 6 H Ur Squamous Epith Cells 1 Urine Bacteria Rare 11/04/24 05:18 WBC RBC Hgb Hct MCV MCH MCHC RDW Std Deviation Plt Count Neut % (Auto) Lymph % (Auto) [place] % (Auto) Eos % (Auto) Baso % (Auto) Neut # (Auto) Lymph # (Auto) [place] # (Auto) Eos # (Auto) Baso # (Auto) Immature Gran # (Auto) Absolute Nucleated RBC Immature Gran % Nucleated RBC % PT INR APTT Sodium Potassium Chloride Carbon Dioxide Anion Gap BUN Creatinine Estim Creat Clear Calc eGFR BUN/Creatinine Ratio Glucose Estimated Ave Glu mg/dL Hemoglobin A1c Calculated Osmolality Calcium Corrected Calcium Phosphorus Magnesium Total Bilirubin AST ALT Alkaline Phosphatase Troponin I C-Reactive Prot, Quant Cancelled B-Natriuretic Peptide Total Protein Albumin Globulin Albumin/Globulin Ratio Triglycerides 262 H Cholesterol 191 LDL Cholesterol, Calc 100 HDL Cholesterol 39 L Cholesterol/HDL Ratio 4.9 TSH 1.29 Ur Collection Type Urine Color Urine Clarity Urine pH Ur Specific Lavinia Urine Protein Urine Glucose (UA) Urine Ketones Urine Blood Urine Nitrite Urine Bilirubin Urine Urobilinogen (Auto) Ur Leukocyte Esterase Urine RBC Urine WBC Ur Squamous Epith Cells Urine Bacteria Quality Measures Quality Measures none Assessment & Plan Assessment Current Active Medications: Generic Name Dose Route Start Last Admin Trade Name Freq PRN Reason Stop Dose Admin Acetaminophen 650 mg 11/03/24 16:46 Acetaminophen 325 Mg Tablet PO 12/03/24 16:45 Q6H PRN Fever >100.4 Acetaminophen 650 mg 11/03/24 16:46 Acetaminophen 325 Mg Tablet PO 12/03/24 16:45 Q6H PRN PAIN SCALE 1-3 (mild Furosemide 40 mg 11/04/24 09:00 Furosemide Inj 10 Mg/Ml 4ml Vial IVP 12/04/24 08:59 QDAY LIBORIO Heparin Sodium (Porcine) 5,000 unit 11/03/24 22:00 11/04/24 05:12 Heparin Sod Inj 5000 Unit/Ml Vial SC 11/17/24 21:59 5,000 unit Q8HR LIBORIO Administration Ondansetron HCl 4 mg 11/03/24 16:46 Ondansetron Inj 2 Mg/Ml Inj 2 Ml IVP 12/03/24 16:45 Q6H PRN NAUSEA OR VOMITING Protocol Sennosides 2 tab 11/03/24 16:46 Senna Tablet PO 12/03/24 16:45 BID PRN CONSTIPATION Protocol Plan Patient is a 29-year-old female with unremarkable past medical history recent L&D via c-setion who was admitted on 11/03/2024 for new onset CHF exacerbation. Cardiology consulted for CHF exacerbation. #Fluid Overloaded #Gestational Edema, Complicated [place] #CHF ruled out Etiology: Patient described gestation edema that worsened s/p Labor and Delivery. Dilated Cardiomypoathy less likely given negative Echo. Please have close follow up with PCP or OBGYN to confirm resolution of fluid overload. DDx: Less likely secondary to [facility] as troponin unremarkable, no chest pain, and EKG sinus. PE ruled out given CTA chest negative. Echo (11/03/2024): Normal LV size and function. Normal left ventricular diastolic function. Estimated EF 55-60%. Normal RV size and function. Estimated RVSP is 35-40 mm hg.Trace MR. Mild TR. Trivial PI. IVC normal size and no pericardial effusion. CTA chest (11/03/2024): Mild enlargement of cardiac contour with mild edema at the left lung bases and small left pleural effusion. PE negative BNP: 566 EKG: Regular sinus, HR 60, QT 401 Lipid: Triglycerides 262, Cholesterol 191, LDL 100, HDL 39 A1c 5.0% 11/04/2024: Continue Lasix 20 mg PO qday for 1 week after discharge. [employer] patient of BP with diuresis. FOLLOW UP WITH PCP OR OBGYN to confirm resolution of lower peripheral edema. ASCVD:No statins recommended 0.7% Plan: -Lasix 40 mg IV qday -Please follow up with PCP or OGYN -K>4 and Mg >2 -SpO >90%, support PRN -Daily Weights, Strict Ins and Outs, Fluid Striction (1500), Sodium Restriction 2 grams per day #Microcytic Anemia On admission patient noted to have microcytic anemia, given recent and , iron deficiency can not be ruled out. Less likely secondary to jalyn blood loss vs Thiamine/Folic deficiency. Continue pre- vitamin in setting as patient is breast feeding and anemia noted. 11/03/2024: hgb 8.3, hct 25.2, MCV 81-->Hgb 9.0, Hct 27.8 (11/04/2024) Plan - Vitamin, continue upon discharge, follow up with OBGYN to determine duration -consider Iron Panel, ferritin, folic, and thiamine -monitor hgb, maintina hgb >7 Health Maintenance: Disp: Pt is currently admitted to floors for further management of CHF, lower peripheral edema improved. Please have patient follow up with PCP or OBGYN physician FEN: Cardiac Diet DVT: on subQ heparin q8hr Code: Full code - The patient's plan was discussed with attending Dr. Clarice Chan MD PGY1 Internal Medicine
[2024-11-04 09:55] LABS: Ferritin 20 ng/mL (7.3-270.7); Iron 35 mcg/dL (50-170); Percent Iron Saturation 9 % (20-55); Total Iron Binding Capacity 358 mcg/dL (250-425); Unsaturated Iron Binding 323 (225-295)
--- NOTE | 2024-11-04 10:39 | PC.SS ---
Follow up note: Cardio is consulting. On IV Diuresis. Pt is possible d/c home today.
[2024-11-04 11:01] LABS: Sed Rate (ESR) 70 mm/hr (0-20)
[2024-11-04 11:03] LABS: Folate 9.68 ng/mL (>5.38); Vitamin B12 257 pg/mL (211-911)
[2024-11-04 11:04] VITALS: BP 122/60; PULSE 83
[2024-11-04] MEDS: FUROSEMIDE INJ 10 MG/ML 4ML VIAL 40 MG IVP (11:04)
[2024-11-04] MEDS: PRENATAL VITAMIN/FE FUM/FA TABLET 1 TAB PO (11:07)
--- NOTE | 2024-11-04 11:35 | PC.SS ---
SS met with patient and regarding her d/c plan. Pt is alert/oriented. Pt was admitted for Shortness of Breath. confirmed patient's demographic and contact information is correct on facesheet. Pt resides with . Pt ambulates independently without assistance or DME. Pt is ok with all ADLs. Patient?s pharmacy [facility] choice is [facility] [address]. Per , he is patient's medical decision maker if she is unable. Patient?s choice is to return home upon d/c. Per , pt states not diabetic and is not on dialysis. Pt has an appoint with PCP on 11-07-24. will provide transportation. D/C plan: Return home Next of Kin: Saeid Naik, , phone# [phone] PCP: Dr. Gaytan Address: Correct on facesheet
[2024-11-04 12:00] VITALS: BP 112/71; PULSE 78; PULSE 97; RESP 23; TEMP 36.5; O2SAT 97
--- NOTE | 2024-11-04 13:13 | ESDS_ITS ---
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 Attending Provider on DC: Delroy Cole MD Discharging Provider: Delroy Cole MD Anticipated date of discharge: 11/04/24 DS: Diagnosis Problem List Completed Was Problem List Reviewed/Reconciled?: Yes Hospital Course Hospital Course Hospital course: Hospital course: Ms. Kulkarni is a 29-year-old female with past medical history of gestational diabetes mellitus, recent section September 2024 who presented to [facility] emergency department on 11/03 due to dyspnea and lower extremity edema. Patient complained of significant shortness of breath and orthopnea, patient was admitted to the hospital for further workup. CT angio was negative for pulmonary embolism, unremarkable troponins and EKG, urine protein negative and echocardiogram done showed EF 55 to 60%, normal LV size and function, normal diastolic function and normal RV size and function. No pericardial effusion is noted. Patient did receive IV Lasix x 1. Patient swelling significantly improved with the Lasix, patient requesting discharge, case was discussed with cardiology and patient was deemed stable to be discharged on p.o. Lasix for 7 days. Patient will be given iron supplementation and multivitamins considering she does have significant iron deficiency anemia. Patient to follow-up outpatient with primary care physician in 1 week. Patient is stable for discharge, responded well to hospital treatment. Discharge Diagnosis: #Fluid overload #Gestational edema #Ruled out CHF #Iron deficiency anemia #Status post , section Case discussed with Attending Dr. Cole. Ramon Franco PGY1 Disclaimer: This note was dictated by speech recognition. Minor errors in managed services sales consultant may be present due to voice recognition software. Status at Discharge Functional status at discharge: independent ambulation Overall status at discharge: patient is progressing back to baseline Time Spent with Patient Time attestation: Total time spent providing and/or coordinating discharge services: Time spent: Less than 30 minutes Exam Vital Signs Temp Pulse Resp BP Pulse Ox O2 Del Method 97.7 F 78 23 H 112/71 97 Room Air 11/04/24 12:00 11/04/24 12:11/04/24 12:11/04/24 12:11/04/24 12:11/04/24 12:00 Narrative Exam GENERAL: Awake, alert and oriented. No acute distress. HEENT: Normocephalic, atraumatic and nontender.? Pupils are equal and reactive to light and accommodation.? Oral mucosa moist. NECK: Supple without adenopathy. Trachea midline. Nontender, carotid pulse 2+ bilaterally without bruits, no JVD.? CHEST: Heart rate and rythm normal, no murmurs, gallops auscultated. S1 & 2 normal insensity. Nontender on palpation, no deformity and no crepitus. LUNGS: Lung sounds are clear.? No wheezing, rales or ronchi.? No intercostal subcostal retraction. Room air ABDOMEN: Soft,symmetric , nontender, no guarding or rebound tenderness. No abnormal masses palpated.? Bowel sounds are normoactive in all 4 quadrants. EXTREMITIES: Nontender.? 2+ pitting edema extending to mid sotelo. SKIN: No rashes noted. NEURO:? Cranial nerves intact.? There is no focalization.? GCS is 15. Discharge Plan Plan Patient Disposition: HOME (Self Care) Patient condition on transfer: Stable Prescriptions/Referrals Prescriptions/Med Rec: New furosemide [Lasix] 20 mg tablet 20 mg PO QAM Qty: 7 0RF ferrous sulfate [Feosol] 325 mg (65 mg iron) tablet 325 mg PO Q OTHER DAY 30 Days Qty: 15 0RF multivitamin [Daily Multi-Vitamin] Tablet 1 tab PO QDAY Qty: 30 0RF Continued docusate sodium 100 mg Capsule 100 mg PO QDAY 30 Days Qty: 30 0RF Discontinued hydrocodone-acetaminophen 5-325 mg tablet 1 tab PO Q6H MDD 4 PRN (Reason: pain) 7 Days Qty: 28 0RF ibuprofen 600 mg tablet 600 mg PO Q6H MDD 4 PRN (Reason: fever or pain) 10 Days Qty: 40 0RF Referrals: Madai Gaytan MD [Primary Care Provider] - Ramon Franco MD [Resident] - Patient/Caregiver Discharge Instructions Discharge Activity: activity as tolerated Other Discharge Activity Instructions:: Take Lasix 20 mg every day for 1 week for swelling. Take iron tablets every other day 325 mg for 1 month, recheck iron levels outpatient with primary care physician. Take daily multivitamin for 1 month. Please follow up with your PCP in 1 week of discharge. Please discuss with your PCP regarding cardiology referral if the swelling persist even after a week. You can also follow-up in [facility] in 1 to 2 weeks. Call [phone] to make an appointment Address: [facility], [address], [address], [place], [address] Return to ED if symptoms return or worsen. Education Materials: Anemia, Breast Care After , ED Leg Swelling in Both Legs Print Language: Maori Stand Alone Forms: Cristel Award Info., Patient Portal Info Letter Discharge Order Discharge Orders: Discharge (Routine); Ordered 11/04/24 Ordered By: Delroy Cole Quality Discharge Quality Measures VTE prophylaxis Attestestation MD Attestation I attest that I was physically present for the evaluation, physical examination, lab and imaging review of the patient with the residents. I discussed the case with the residents and agree with the findings and plans of care as documented above. Delroy Cole MD
[2024-11-04 15:00] VITALS: BP 125/68; PULSE 87; RESP 20; TEMP 36.6; O2SAT 95
[2024-11-10 06:34] LABS: ANA Screen, IFA NEGATIVE (NEGATIVE)
== END 2024-11-04 14:46 | disposition home or self-care (01) | DRG 561 ==
LOC: SERX 16:10 → SERHOLD 17:11 → S2NX 21:47
PROVIDERS: Nurse Practitioner Family; Student in an Organized Health Care Education/Training Program; Admitting Provider Student in an Organized Health Care Education/Training Program; Emergency Provider Emergency Medicine; PCP Student in an Organized Health Care Education/Training Program; Visit Provider Specialist
DX: O90.3 Peripartum cardiomyopathy (principal); O90.81 Anemia of the puerperium; O24.410 Gestational diabetes mellitus in pregnancy, diet controlled; D50.9 Iron deficiency anemia, unspecified
CPT/HCPCS: 36415; 71275; 80048; 80053; 80061; 81001; 82607; 82728; 82746; 83036; 83540; 83550; 83735; 83880; 84100; 84443; 84484; 85025; 85610; 85652; 85730; 86038; 86140; 87081; 93005; 93306; 93970; 96374; 99285; A4649; J1644; J1938; Q9967; A9270